=== PATIENT | male | born 1995 | race Caucasian/White ===

== ENCOUNTER 2017-01-02 13:37 | Day surgery (SDC) | payer OTHER, MEDICAID ==
[~2017-01-02 13:37] MED LIST: GLYCOPYRROLATE INJ 0.4 MG/2 ML VIAL ONE; KETOROLAC TROMETHAMINE 60 MG/2 ML SDV ONE; LIDOCAINE 2% INJ-PF (20 MG/ML) 10 ML AMPUL ONE; METOCLOPRAMIDE HCL INJ/PF 10 MG/2 ML SDV ONE; NEOSTIGMINE METHYLSULFATE 10 MG/10 ML VIAL ONE; ONDANSETRON HCL INJ/PF 4 MG/2 ML SDV ONE; ROCURONIUM BROMIDE INJ 50 MG/5 ML VIAL IV ONE; SUCCINYLCHOLINE CHLORIDE INJ 200 MG/10 ML VIAL ONE
--- NOTE | 2017-01-02 13:51 | ER Document Report ---
ED Medical Screen (RME) - General Stated Complaint: ABDOMINAL PAIN Notes: 21 yo male c/o right lower abdominal pain, cramping, vomiting x 2 day. no fever. last ate 0200 hx/o IDDM, on pump Humulog - Related Data Allergies/Adverse Reactions: No Known Allergies Allergy (Verified 01/02/17 13:49) Past Medical History Endocrine Medical History: Reports: Hx Diabetes Mellitus Type 1 - Immunizations Immunizations up to date: Yes Hx Diphtheria, Pertussis, Tetanus Vaccination: Yes Physical Exam - Vital signs Vitals: Temp Pulse Resp BP Pulse Ox 98.5 F 104 H 18 134/67 H 98 01/02/17 13:44 01/02/17 13:44 01/02/17 13:44 01/02/17 13:44 01/02/17 13:44 Course - Vital Signs Vital signs: Temp Pulse Resp BP Pulse Ox 98.5 F 104 H 18 134/67 H 98 01/02/17 13:44 01/02/17 13:44 01/02/17 13:44 01/02/17 13:44 01/02/17 13:44
[2017-01-02 14:26] LABS: APPEARANCE,URINE CLEAR; BILIRUBIN,URINE NEGATIVE (NEGATIVE); GLUCOSE, URINE >=500 mg/dL (NEGATIVE); KETONES,URINE 80 mg/dL (NEGATIVE); LEUKOCYTE ESTERASE,URINE NEGATIVE (NEGATIVE); NITRITE,URINE NEGATIVE (NEGATIVE); PROTEIN,URINE NEGATIVE (NEGATIVE); UROBILINOGEN,URINE NEGATIVE mg/dL (<2.0)
[2017-01-02 14:31] LABS: ABSOLUTE EOSINOPHILS # (AUTO) 0.1 10^3/uL (0.0-0.6); ABSOLUTE LYMPHOCYTES (AUTO) 0.7 10^3/uL (0.5-4.7); ABSOLUTE MONOCYTES (AUTO) 0.5 10^3/uL (0.1-1.4); ABSOLUTE NEUT (AUTO) 11.3 10^3/uL (1.7-8.2); EOSINOPHILS % (AUTO) 0.6 % (0-6); HEMATOCRIT 43.3 % (37.9-51.0); HEMOGLOBIN 14.8 g/dL (13.5-17.0); HGB HCT DIFFERENCE 1.1; LYMPHOCYTES % (AUTO) 5.5 % (13-45); MEAN CORPUSCULAR HGB CONC 34.2 g/dL (32.0-36.0); MEAN CORPUSCULAR VOLUME 85 fl (80-97); MONOCYTES % (AUTO) 3.9 % (3-13); RED BLOOD COUNT 5.09 10^6/uL (4.35-5.55); RED CELL DISTRIBUTION WIDTH 13.2 % (11.5-14.0); WHITE BLOOD COUNT 12.6 10^3/uL (4.0-10.5)
[2017-01-02] MEDS ORDERED: ONDANSETRON HCL INJ/PF 4 MG/2 ML SDV IV ONE (14:34)
[2017-01-02] MEDS ORDERED: MORPHINE SULFATE 10 MG/ML INJ IV ONE (14:34)
[2017-01-02 14:37] LABS: ALANINE AMINOTRANSFERASE 25 U/L (21-72); ALBUMIN 5.2 g/dL (3.5-5.0); ALKALINE PHOSPHATASE 108 U/L (38-126); ANION GAP 18 (5-19); ASPARTATE AMINO TRANSFERASE 16 U/L (17-59); BILIRUBIN,DIRECT 0.3 mg/dL (0.0-0.4); BILIRUBIN,TOTAL 1.3 mg/dL (0.2-1.3); BLOOD UREA NITROGEN 17 mg/dL (7-20); CALCIUM 10.4 mg/dL (8.4-10.2); CARBON DIOXIDE 24 mmol/L (22-30); CHLORIDE 100 mmol/L (98-107); CREATININE RESULT 0.87 mg/dL (0.52-1.25); GLUCOSE 262 mg/dL (75-110); POTASSIUM 5.1 mmol/L (3.6-5.0); SODIUM 142.1 mmol/L (137-145); TOTAL PROTEIN 8.3 g/dL (6.3-8.2)
[2017-01-02] MEDS ORDERED: PIPERACILLIN/TAZOBACTAM 3.375 GM VIAL IV ONE (14:37)
--- NOTE | 2017-01-02 14:39 | ER Document Report ---
ED GI/ - General Mode of Arrival: Ambulatory Information source: Patient, Parent TRAVEL OUTSIDE OF THE [place] IN LAST 30 DAYS: No - HPI Patient complains to provider of: Abdominal pain Associated symptoms: Other - See above <ALEXI GODINEZ - Last Filed: 01/02/17 15:20> <MAGDAANOOP - Last Filed: 01/02/17 19:48> - General Chief Complaint: Abdominal Pain Stated Complaint: ABDOMINAL PAIN Notes: Patient is a 21 year old male, with a past medical history including IDDM, who presents to the emergency department complaining of abdominal pain onset at 0600 this morning. Patient reports he went to bed with a stomach ache last night and thought it would go away. Patient woke up with pain across his lower abdomen, mostly in his RLQ, and nauseated. Patient vomited at 0630 and again at 1115. Patient reports he feels dehydrated after vomiting. Parents deny fever but state they do not have a thermometer at home. PCP: Dr. David Vargas, [facility] (ALEXI GODINEZ) - Related Data Allergies/Adverse Reactions: No Known Allergies Allergy (Verified 01/02/17 13:49) Past Medical History - General Information source: Patient - Social History Smoking Status: Never Smoker Chew tobacco use (# tins/day): No Frequency of alcohol use: None Drug Abuse: None Family History: Reviewed & Not Pertinent Patient has suicidal ideation: No Patient has homicidal ideation: No Endocrine Medical History: Reports: Hx Diabetes Mellitus Type 1 - Immunizations Immunizations up to date: Yes Hx Diphtheria, Pertussis, Tetanus Vaccination: Yes <ALEXI GODINEZ - Last Filed: 01/02/17 15:20> Review of Systems - Review of Systems Constitutional: denies: Fever EENT: No symptoms reported Cardiovascular: No symptoms reported Respiratory: No symptoms reported Gastrointestinal: See HPI, Abdominal pain, Nausea, Vomiting Genitourinary: No symptoms reported Male Genitourinary: No symptoms reported Musculoskeletal: No symptoms reported Skin: No symptoms reported Hematologic/Lymphatic: No symptoms reported Neurological/Psychological: No symptoms reported -: Yes All other systems reviewed and negative <ALEXI GODINEZ - Last Filed: 01/02/17 15:20> Physical Exam - Vital signs Interpretation: Normal - General General appearance: Appears well, Alert - HEENT Head: Normocephalic, Atraumatic Mucous membranes: Dry - Respiratory Respiratory status: No respiratory distress Chest status: Nontender Breath sounds: Normal Chest palpation: Normal - Cardiovascular Rhythm: Regular Heart sounds: Normal auscultation Murmur: No - Abdominal Inspection: Other - Insulin pump connected to RLQ Distension: No distension Bowel sounds: Hypoactive Tenderness: Tender - Tenderness to palpation of RLQ, when LLQ is palpated patient reports pain in RLQ., Guarding Organomegaly: No organomegaly - Extremities General upper extremity: Normal inspection General lower extremity: Normal inspection - Neurological Neuro grossly intact: Yes Cognition: Normal Orientation: AAOx4 [place] Coma Scale Eye Opening: Spontaneous [place] Coma Scale Verbal: Oriented [place] Coma Scale Motor: Obeys Commands Luis Manuel Coma Scale Total: 15 Speech: Normal - Psychological Associated symptoms: Normal affect, Normal mood - Skin Skin Temperature: Warm Skin Moisture: Dry Skin Color: Normal <ALEXI GODINEZ - Last Filed: 01/02/17 15:20> Course - Laboratory Result Diagrams: 01/02/17 13:55 01/02/17 13:55 <ALEXI GODINEZ - Last Filed: 01/02/17 15:20> - Laboratory Result Diagrams: 01/02/17 13:55 01/02/17 13:55 - Diagnostic Test Radiology reviewed: Image reviewed, Reports reviewed - CT of abdomen and pelvis with IV contrast shows a small appendicolith, no inflammation, no other abnormalities. - Consults Dr. Lowe Time consulted: 15:00 Consulted provider: will come to ER <ANOOP MAN - Last Filed: 01/02/17 19:48> - Vital Signs Vital signs: Temp Pulse Resp BP Pulse Ox 98.5 F 104 H 20 125/62 100 01/02/17 13:44 01/02/17 13:44 01/02/17 18:59 01/02/17 18:59 01/02/17 18:59 - Laboratory Laboratory results interpreted by me: 01/02/17 01/02/17 01/02/17 13:45 13:55 13:55 WBC 12.6 H Seg Neutrophils % 90.0 H Lymphocytes % 5.5 L Absolute Neutrophils 11.3 H Potassium 5.1 H Glucose 262 H POC Glucose 235 H Calcium 10.4 H AST 16 L Total Protein 8.3 H Albumin 5.2 H Urine Glucose (UA) Urine Ketones 01/02/17 13:55 WBC Seg Neutrophils % Lymphocytes % Absolute Neutrophils Potassium Glucose POC Glucose Calcium AST Total Protein Albumin Urine Glucose (UA) >=500 H Urine Ketones 80 H Discharge <ALEXI GODINEZ - Last Filed: 01/02/17 15:20> - Discharge Admitting Provider: Surgicalist Unit Admitted: OR <ANOOP MAN - Last Filed: 01/02/17 19:48> - Discharge Clinical Impression: Right lower quadrant abdominal pain, Insulin dependent diabetes mellitus, Ketosis due to diabetes, Appendicolith Nausea & vomiting Qualifiers: Vomiting type: unspecified Vomiting Intractability: non-intractable Qualified Code(s): R11.2 - Nausea with vomiting, unspecified Condition: Stable Disposition: ADMITTED INPATIENT Referrals: DAVID VARGAS MD [Primary Care Provider] - Follow up as needed Scribe Attestation: 01/02/17 15:04 I personally performed the services described in the documentation, reviewed and edited the documentation which was dictated to the scribe in my presence, and it accurately records my words and actions. (ANOOP MAN) Scribe Documentation - Scribe Written by Alessandro:: alessandro Torres, 01/02/17, [id number] acting as scribe for :: Magda <ALEXI GODINEZ - Last Filed: 01/02/17 15:20>
[2017-01-02] MEDS: NORMAL SALINE 1000 ML 1,000 ML IV PRN ×2 (14:58→15:05)
[2017-01-02] MEDS ORDERED: NORMAL SALINE 1000 ML 1,000 ML IV ONE (17:42)
[2017-01-02] MEDS ORDERED: MORPHINE SULFATE 10 MG/ML INJ IV PRN ×4 (18:58→22:30)
[2017-01-02] MEDS ORDERED: DEXTROSE 5%-LACTATED RINGERS 1,000 ML IV PRN (18:58)
[2017-01-02] MEDS ORDERED: OXYCODONE-ACETAMINOPHEN 5-325 MG TABLET PO PRN ×2 (19:03→19:21)
[2017-01-02] MEDS ORDERED: PIPERACILLIN/TAZOBACTAM 4.5 GM VIAL IV ONE (19:05)
--- NOTE | 2017-01-02 19:17 | Brief Operative Note ---
BRIEF OPERATIVE REPORT DATE OF SURGERY: 01/02/17 TIME OF SURGERY: 18:00 PREOPERATIVE DIAGNOSIS: Acute Appendicitis POSTOPERATIVE DIAGNOSIS: Purulent Acute Appendicitis SURGEON: LYDIA VALDES FINDINGS: Purulent Appendicitis COMPLICATIONS: None ESTIMATED BLOOD LOSS: 10cc TISSUE REMOVED OR ALTERED: Apppendix TECHNICAL PROCEDURE: Laparoscopic Appendectomy
[2017-01-02] MEDS ORDERED: FENTANYL CITRATE INJ/PF 250 MCG/5 ML AMPULE ONE (20:18)
[2017-01-02] MEDS ORDERED: EPHEDRINE SULFATE INJ 50 MG/1 ML AMPULE ONE (20:19)
[2017-01-02] MEDS ORDERED: DEXMEDETOMIDINE INJ 80 MCG/20 ML VIAL IV ONE (20:19)
[2017-01-02] MEDS ORDERED: PROPOFOL INJ 200 MG/20 ML VIAL IV ONE (20:19)
[2017-01-02] MEDS ORDERED: ACETAMINOPHEN 100 ML IV ONE (20:19)
[2017-01-02] MEDS ORDERED: MIDAZOLAM 2 MG/2 ML INJ ONE (20:19)
--- NOTE | 2017-01-02 20:23 | HISTORY AND PHYSICAL E ---
History and Physical NAME: CHRIS LUQUE : 1995 AGE: 21Y ADMITTED: 01/02/2017 ROOM: ED21 REASON FOR ADMISSION: Acute appendicitis. HISTORY OF PRESENT ILLNESS: This 21-year-old man was in his usual state of health until approximately midnight last night when he developed right lower quadrant pain. This was accompanied by nausea without vomiting, without fever or chills. The patient presented to the emergency room and on examination was found to have right lower quadrant tenderness. Bowel sounds were present, however. The patient's white count was 12.6 and labs, otherwise, were within normal limits. I was asked to see the patient, but at that time my findings were equivocal and I recommended that a CT scan be performed. CT scan was done and revealed a small appendicolith at image 59 and 60, but there was no free fluid or peritoneal masses. There were no inflammatory changes or masses. However, the patient continues to have right lower quadrant pain and, therefore, surgical referral was made. PAST MEDICAL HISTORY: The patient has history of diabetes mellitus and has an insulin pump in his abdomen. The patient has no history of hypertension; cardiac, renal, pulmonary, or liver disease; or bleeding tendencies. No history of anesthesia problems. ALLERGIES: The patient has no known allergies. PAST SURGICAL HISTORY: The patient has no previous surgery. INJURIES: None. REVIEW OF SYSTEMS: Constitutional; the patient has no actual weakness. The patient has no symptoms referable to the ENT, respiratory, or cardiovascular systems. Gastrointestinal systems; as in the history of present illness. The patient denies any genitourinary, musculoskeletal, integumentary, lymphatic, endocrine, or psychiatric symptoms. The patient does have insulin dependent diabetes and is on an insulin pump. PHYSICAL EXAMINATION: GENERAL: Reveals a 21-year-old male who is normally nourished, normally developed with no acute distress. VITAL SIGNS: Noted; temperature 98.5, pulse 104, respirations 18, blood pressure 134/67, pulse ox 98. HEENT: There is no conjunctival pallor or scleral icterus. Mucous membranes are moist and pink. NECK: Supple without nodes, masses, thyroid, JVD, or bruits. Trachea is midline. CHEST: Shows good excursion. Lungs are clear anteriorly with good entry bilaterally. CARDIOVASCULAR: S1 and S2 are audible without murmurs or gallops. ABDOMEN: Soft, flat with mild to moderate right lower quadrant tenderness with minimal guarding, there is no rebound. Bowel sounds are present. There are no hernias or bruits. There is no organomegaly or masses. EXTREMITIES: Show full range of motion. IMPRESSION: Acute appendicitis. Given the presence of an appendicolith and the patient's consistent and persistent right lower quadrant tenderness. DICTATING PHYSICIAN: LYDIA VALDES M.D. [id number] PHY#: [id number] ID: [id number] JOB#: [id number] ACCT: [id number] cc: >
[2017-01-02] MEDS ORDERED: BUPIVACAINE HCL 0.5 % INJ/PF 30 ML SDV ONE (21:02)
[2017-01-02] MEDS ORDERED: BUPIVACAINE HCL 0.5 % INJ/PF 30 ML SDV INJ ONE (21:16)
[2017-01-02] MEDS ORDERED: ONDANSETRON HCL INJ/PF 4 MG/2 ML SDV IV PRN (21:23)
[2017-01-02] MEDS ORDERED: DIPHENHYDRAMINE HCL 50 MG/ML VIAL IV PRN (21:23)
[2017-01-02] MEDS ORDERED: PROMETHAZINE HCL INJ 25 MG/1 ML VIAL IV PRN ×2 (21:23)
[2017-01-02] MEDS ORDERED: MEPERIDINE HCL/PF INJ 25 MG/1 ML DISP.SYRIN IV PRN (21:23)
[2017-01-02] MEDS ORDERED: FENTANYL CITRATE INJ/PF 100 MCG/2 ML AMPUL IV PRN ×3 (21:23)
[2017-01-02] MEDS ORDERED: NORMAL SALINE 1000 ML 1,000 ML IV PRN (22:01)
--- NOTE | 2017-01-02 22:14 | Brief Operative Note ---
BRIEF OPERATIVE REPORT DATE OF SURGERY: 01/02/17 TIME OF SURGERY: 21:00 PREOPERATIVE DIAGNOSIS: Acute Appendicitis POSTOPERATIVE DIAGNOSIS: Same SURGEON: LYDIA VALDES FINDINGS: Appendicolith COMPLICATIONS: None ESTIMATED BLOOD LOSS: 3cc TISSUE REMOVED OR ALTERED: Appendix TECHNICAL PROCEDURE: Laparoscopic Appendectomy
[2017-01-02] MEDS: PIPERACILLIN SODIUM/TAZOBACTAM 4.5 GM in NORMAL SALINE 100 ML IV SCH (23:02)
--- NOTE | 2017-01-02 23:08 | OPERATIVE REPORT E ---
Operative Report NAME: CHRIS LUQUE : 1995 AGE: 21Y DATE OF SURGERY: 01/02/2017 ROOM: 530 PREOPERATIVE DIAGNOSIS: Appendicitis. POSTOPERATIVE DIAGNOSIS: Appendicitis with appendicolith. OPERATION: Laparoscopic appendectomy. SURGEON: LYDIA VALDES M.D. ANESTHESIA: General. REPLACEMENT: Crystalloid. DRAINS: None. COMPLICATIONS: None. CONDITION: Stable. FINDINGS: The patient had early appendicitis with appendicolith in the appendix. INDICATION FOR THE PROCEDURE: The patient presented to the emergency room with a 12-hour history of right lower quadrant pain, some nausea and vomiting. The patient underwent a CT scan which showed an appendicolith without evidence of inflammatory changes; however, because of his right lower quadrant pain the patient was brought to the operating room for laparoscopic appendectomy. PROCEDURE: The patient was brought to the operating suite and placed in a supine position on the operating table. Monitoring devices were attached. An IV sedation was given followed by the induction of general endotracheal anesthesia. The patient's abdomen was prepped and draped in the usual sterile manner and a timeout was achieved. We then made an incision just below the umbilicus after injecting Marcaine solution. The incision was carried through the skin and subcutaneous tissue down to the linea alba. Two 0-vicryl stay sutures were placed in the linea alba, and then an incision was made between the 2 stay sutures. We then grasped the peritoneum and made an incision in the peritoneum and entered the abdominal cavity. There was no evidence of any viscera adherent to the anterior abdominal wall. We then inserted our Franks trocar and secured it with 2-0 Vicryl stay sutures. We inserted our laparoscopic camera and light source and surveyed the abdominal cavity and found no evidence of any bleeding or injuries. Under direct vision we placed our remaining 2 trocars, 5 mm, at the suprapubic region and another 5 mm at the left lower quadrant. The appendix was easily visualized and it was lifted. An opening was made in the mesoappendix. We inserted the endoscopic HARSHAD and divided the mesoappendix and then reloaded the HARSHAD and then divided the appendix from the cecal base. The appendix was placed in the EndoBag and removed from the abdominal cavity. We noticed some bleeding from the staple line, and hemoclips were placed on the staple line in order to arrest the bleeding. Once adequate hemostasis was assured, we then irrigated again with normal saline and once being satisfied with hemostasis, we removed all trocars under direct vision after sucking out the saline, and the procedure was terminated. We then decompressed the abdomen and closed our infraumbilical incision using 0-Vicryl continuous suture. Once we closed the fascial defect, we then closed all skin incisions using a skin stapler. The patient tolerated the procedure well. Sponge and instruments were correct. The patient was discharged to the PACU in stable condition. DICTATING PHYSICIAN: LYDIA VALDES M.D. [id number] PHY#: [id number] ID: [id number] JOB#: [id number] ACCT: [id number] cc:LYDIA VALDES M.D. >
[2017-01-03] MEDS ORDERED: PIPERACILLIN/TAZOBACTAM 4.5 GM VIAL IV ONE (00:10)
[2017-01-03] MEDS: PIPERACILLIN SODIUM/TAZOBACTAM 4.5 GM in NORMAL SALINE 100 ML IV SCH ×2 (03:32→08:49)
[2017-01-03] MEDS ORDERED: DEXTROSE 50%-WATER 25 GM/50 ML DISP.SYRIN IV PRN ×2 (06:25)
[2017-01-03] MEDS ORDERED: GLUCAGON,HUMAN RECOMB 1 MG INJ IM PRN (06:25)
[2017-01-03] MEDS ORDERED: INSULIN LISPRO 100 UNIT/ML 3 ML VIAL SUBCUT PRN (06:25)
[2017-01-03] MEDS ORDERED: DEXTROSE 40% GEL 15 GM TUBE PO PRN ×2 (06:25)
[2017-01-03] MEDS ORDERED: PHARMACY COMMUNICATION ORDER MC NR (07:30)
--- NOTE | 2017-01-03 07:52 | PDOC CONSULTATION ---
Consultation Consult Date: 01/03/17 Attending physician:: LYDIA VALDES Consult reason:: DIABETIC MANAGEMENT History of Present Illness Admission Date/PCP: 01/02/17 19:58 AMAIRANI VARGAS MD Patient complains of: abd pain History of Present Illness: CHRIS LUQUE is a 21 year old male with underlying insulin- dependent diabetes mellitus, managed by insulin pump for several years, status post laparoscopic appendectomy for appendicitis with appendicolith. Consult placed for diabetic management. Surgeon's history and physical exam has been reviewed. Per nursing staff, he has had basically an unremarkable postoperative course. Mild discomfort. Has Voided. Patient has been discussed with floor nursing staff . Laboratory results are listed in [facility] and are reviewed. X-ray summary results are listed below, with full report(s) reviewed. . Social history/personal habits: Single. No children. Unemployed. No use of alcohol tobacco or illicit drugs. Allergies/adverse reactions NKDA. Home medications are reviewed by discussion with patient and consist only of insulin for his insulin pump, along with when necessary Zofran. REVIEW OF SYSTEMS: Constitutional: No fever or chills. Eyes: Wears glasses. ENT: No swallowing problems or complaints. Partial hearing loss., Left ear Pulmonary: No current complaints. Cardiovascular: No current complaints, including chest pain. Gastrointestinal: Nausea, without vomiting. Skin: No current complaints, including rashes. Hematologic: No unusual easy bruising or bleeding. Neurologic: No current complaints, including numbness or tingling. Musculoskeletal: No current complaints, including painful joints. Psychiatric: No current complaints, including anxiety or depression. Endocrine: No current complaints, including polyuria. Genitourinary: No current complaints, including dysuria. PHYSICAL EXAMINATION: 5 feet 9 inches tall. 77.7 kg. BMI 25.3 kg/m.Temperature 98.7. Pulse 97 regular. Blood pressure 119/48. Respirations are 14 and unlabored. 99% saturation on room air. Well-nourished well-developed young male appearing approximate stated age. Initially asleep, but awakens easily. Pleasant alert and cooperative. No obvious distress other than perhaps mildly anxious. Floor nurse Apoorva Sosa is present. Skin is warm and dry. No grossly obvious evidence of rash in areas of skin examined. No subcutaneous nodules palpated. ENT: Hearing grossly normal to normal conversation. Tongue midline on protrusion pink and slightly tacky. Eyes: No scleral icterus. Pupils equal and reactive to light at 4 mm. [place] conjunctivae. Neck is supple and nontender to gentle active range of motion and palpation. Midline trachea. No palpable thyroid nodule mass enlargement or tenderness. Lymphatic: No palpable cervical or clavicular nodes. Neck and lymphatic exams limited by patient body habitus. Psychiatric: Reasonable insight into acute and chronic medical issues. Oriented to time location and why here. Lungs: Auscultation reveals clear and equal breath sounds bilaterally. No use of accessory respiratory muscles. Cardiovascular: Heart regular rate and rhythm, without gallop murmur or rub. No carotid or abdominal aortic bruits. No ankle or pedal edema. Faintly palpable dorsalis pedis pulses. Abdomen: soft, slightly, distended with occasional bowel sounds. Surgical dressings are clean dry and intact, and are left in place. Insulin pump with overlying dressing is present, right lower quadrant abdominal wall. Extremities: Feet are warm and dry. No calf tenderness to compression. No grossly obvious visual evidence of calf swelling. Gentle manipulation of lower extremities fails to reveal any obvious evidence of injury or instability to knees hips or ankles. Neurologic: Moves upper extremities grossly normally. Patellar reflexes absent. Absent Babinski. Light touch is intact at feet. Dorsiflexion and plantarflexion of feet 5 / 5 and symmetric. Past Medical History Cardiac Medical History: Denies: Congestive Heart Failure, DVT, Myocardial Infarction, Hyperlipidema, Hypertension, Pulmonary Embolism Pulmonary Medical History: Denies: Asthma, Chronic Obstructive Pulmonary Disease (COPD) EENT Medical History: Reports: Eyes - Glasses, Ears - Partial hearing loss, left ear Denies: Throat Neurological Medical History: Reports: Seizures - Seizures 2 - 3 years of age. None since then. Not on antiepileptic. Denies: Hemorrhagic CVA, Ischemic CVA Endocrine Medical History: Reports: Diabetes Mellitus Type 1 Denies: Diabetes Mellitus Type 2, Hyperthyroidism, Hypothyroidism Renal/ Medical History: Reports: None GI Medical History: Denies: Cirrhosis, Gastroesophageal Reflux Disease, Hepatitis, Peptic Ulcer Disease Musculoskeltal Medical History: Denies: Arthritis Skin Medical History: Reports: None Psychiatric Medical History: Denies: Alcohol Dependency, Depression, General Anxiety Disorder, Substance Abuse, Tobacco Dependency Hematology: Reports: None Infectious Medical History: Denies: Hepatitis B, Hepatitis C Past Surgical History Past Surgical History: Reports: Appendectomy Social History Information Source: Patient, Emergency Med Personnel, [facility] Records Smoking Status: Never Smoker Frequency of Alcohol Use: None Hx Recreational Drug Use: No Drugs: None Hx Prescription Drug Abuse: No - Advance Directive Resuscitation Status: Full Code Surrogate healthcare decision maker:: Parents Family History Family History: Reviewed & Not Pertinent Parental Family History Reviewed: Yes Children Family History Reviewed: NA Sibling(s) Family History Reviewed.: Yes Medication/Allergy Home Medications: Insulin Aspart [Novolog Insulin 100 Unit/1 ml 10 ml] 0 unit SUBCUT .SLD SCALE Ondansetron HCl [Zofran 4 mg Tablet] 1 tab PO ASDIR PRN 01/02/17 Allergies/Adverse Reactions: No Known Allergies Allergy (Verified 01/02/17 13:49) Physical Exam Vital Signs: Temp Pulse Resp BP Pulse Ox 98.7 F 97 14 119/48 L 99 01/03/17 03:45 01/03/17 03:45 01/03/17 03:45 01/03/17 03:45 01/03/17 03:45 Intake & Output 01/02/17 01/03/17 01/04/17 00:59 00:59 00:59 Intake Total 1500 894 Output Total 1201 Balance 299 894 Results Impressions: Abdomen/Pelvis CT 01/02/17 15:47 IMPRESSION: No acute findings in the abdomen or pelvis. Assessment & Plan - Diagnosis (1) History of laparoscopic appendectomy Is this a current diagnosis for this admission?: Yes (2) Hyperkalemia Is this a current diagnosis for this admission?: YesPlan: Follow-up chemistry. (3) DVT prophylaxis Is this a current diagnosis for this admission?: YesPlan: SCDs. Medical prophylaxis per surgery. (4) Insulin dependent diabetes mellitus Is this a current diagnosis for this admission?: YesPlan: Diabetic cardiac diet. Accu-Cheks. Patient to manage blood sugars with insulin pump, as he has for some time now. Thank you for asking us see this pleasant patient. We'll follow him closely.
[2017-01-03 07:58] LABS: ANION GAP 12 (5-19); BLOOD UREA NITROGEN 10 mg/dL (7-20); CALCIUM 8.6 mg/dL (8.4-10.2); CARBON DIOXIDE 23 mmol/L (22-30); CHLORIDE 106 mmol/L (98-107); CREATININE RESULT 0.84 mg/dL (0.52-1.25); GLUCOSE 99 mg/dL (75-110); SODIUM 141.2 mmol/L (137-145)
--- NOTE | 2017-01-03 08:08 | PDOC PROGRESS REPORT ---
Subjective Progress Note for:: 01/03/17 Subjective:: Feels well. Abdominal pain improved after the operation. Hungry. Physical Exam Vital Signs: Temp Pulse Resp BP Pulse Ox 98.7 F 97 14 119/48 L 99 01/03/17 03:45 01/03/17 03:45 01/03/17 03:45 01/03/17 03:45 01/03/17 03:45 Intake & Output 01/02/17 01/03/17 01/04/17 06:59 06:59 06:59 Intake Total 2394 Output Total 1201 Balance 1193 General appearance: PRESENT: no acute distress, cooperative Respiratory exam: PRESENT: clear to auscultation saravanan Cardiovascular exam: PRESENT: RRR GI/Abdominal exam: PRESENT: other - Soft, nondistended, minimal abdominal tenderness. Wounds clean dry and intact. Extremities exam: PRESENT: other - No swelling and no tenderness. Results Impressions: Abdomen/Pelvis CT 01/02/17 15:47 IMPRESSION: No acute findings in the abdomen or pelvis. Assessment & Plan - Diagnosis (1) Appendicitis Qualifiers: Appendicitis type: acute appendicitis Is this a current diagnosis for this admission?: YesPlan: Status post laparoscopic appendectomy. Patient doing well. Will allow the patient to eat and discharge patient home if tolerated.
[2017-01-03 08:15] LABS: POTASSIUM 3.5 mmol/L (3.6-5.0)
[2017-01-03 08:46] VITALS: BP 123/60
--- NOTE | 2017-01-03 09:30 | PDOC PROGRESS REPORT ---
Subjective Progress Note for:: 01/03/17 Subjective:: Patient is awake, alert, and eating breakfast. Patient has no complaints and is tolerating his diet. Blood glucose is well controlled and pump has been resumed. No nausea, vomiting, diarrhea, shortness of breath, dizziness, and chest pain. Patient is eager for discharge. Physical Exam Vital Signs: Temp Pulse Resp BP Pulse Ox 99.1 F 76 14 123/60 100 01/03/17 08:36 01/03/17 08:36 01/03/17 08:36 01/03/17 08:36 01/03/17 08:36 Intake & Output 01/01/17 01/02/17 01/03/17 23:59 23:59 23:59 Intake Total 1500 894 Output Total 1201 Balance 299 894 General appearance: PRESENT: no acute distress, cooperative, well-developed, well-nourished Head exam: PRESENT: atraumatic, normocephalic Eye exam: PRESENT: conjunctiva pink, EOMI, PERRLA. ABSENT: scleral icterus Ear exam: PRESENT: normal external ear exam Mouth exam: PRESENT: moist, tongue midline Neck exam: ABSENT: carotid bruit, JVD, lymphadenopathy, thyromegaly Respiratory exam: PRESENT: clear to auscultation saravanan. ABSENT: rales, rhonchi, wheezes Cardiovascular exam: PRESENT: RRR. ABSENT: diastolic murmur, rubs, systolic murmur Pulses: PRESENT: normal dorsalis pedis pul Vascular exam: PRESENT: normal capillary refill GI/Abdominal exam: PRESENT: normal bowel sounds, soft, tenderness - post-op. ABSENT: distended, guarding, mass, organolmegaly, rebound Rectal exam: PRESENT: deferred Extremities exam: PRESENT: full ROM. ABSENT: calf tenderness, clubbing, pedal edema Neurological exam: PRESENT: alert, awake, oriented to person, oriented to place , oriented to time, oriented to situation, CN II-XII grossly intact. ABSENT: motor sensory deficit Psychiatric exam: PRESENT: appropriate affect, normal mood. ABSENT: homicidal ideation, suicidal ideation Skin exam: PRESENT: dry, intact, warm. ABSENT: cyanosis, rash Results Laboratory Results: 01/03/17 07:26 01/03/17 07:26 Sodium 141.2 Potassium 3.5 L D Chloride 106 Carbon Dioxide 23 Anion Gap 12 BUN 10 Creatinine 0.84 Est GFR ( Amer) > 60 Est GFR (Non-Af Amer) > 60 Glucose 99 Calcium 8.6 Impressions: Abdomen/Pelvis CT 01/02/17 15:47 IMPRESSION: No acute findings in the abdomen or pelvis. Assessment & Plan - Diagnosis (1) Appendicitis Qualifiers: Appendicitis type: acute appendicitis Is this a current diagnosis for this admission?: YesPlan: Post-op management per sx (2) Appendicolith Is this a current diagnosis for this admission?: No (3) DVT prophylaxis Is this a current diagnosis for this admission?: Yes (4) History of laparoscopic appendectomy Is this a current diagnosis for this admission?: Yes (5) Hyperkalemia Is this a current diagnosis for this admission?: YesPlan: Resolved. now hypokalemic. Will give a dose of potassium. (6) Insulin dependent diabetes mellitus Is this a current diagnosis for this admission?: YesPlan: Resume basal now taking diet. Coverage as per carb count. - Time Time Spent with patient: 35 or more minutes Medications reviewed and adjusted accordingly: Yes Anticipated discharge: Home Within: Other Disposition: as per surgery
--- NOTE | 2017-01-03 09:50 | DISCHARGE SUMMARY E ---
Discharge Summary NAME: CHRIS LUQUE : 1995 AGE: 21Y ADMITTED: 01/02/2017 DISCHARGED: 01/03/2017 DISCHARGE DIAGNOSIS: Appendicitis. PROCEDURE PERFORMED DURING HOSPITALIZATION: Laparoscopic appendectomy performed by Dr. Lowe on 01/02/2017. HOSPITAL COURSE: The patient underwent the above mentioned surgery. He did well postoperatively. He was feeling much better at the time of discharge. Patient has now been discharged to home in good condition. DISCHARGE INSTRUCTIONS: He will follow up with [facility] next week. He is encouraged to stay active at home. He may follow a diabetic diet at home. Additional medication to his insulin pump is Percocet one p.o. q. 4 hours p.r.n. pain. DICTATING PHYSICIAN: HELEN HANLEY M.D. [id number] PHY#: [id number] ID: [id number] JOB#: [id number] ACCT: [id number] cc:Robyn CASTRO M.D. >
[2017-01-03] MEDS ORDERED: POTASSIUM CHLORIDE 10 MEQ TABLET.SA PO ONE (10:00)
== END 2017-01-03 10:09 | disposition home or self-care (01) ==
LOC: ER 13:37 → EH 19:58 → UNDOADMIN 19:58 → ER 22:00 → OROUT 22:00 → EH 22:00 → UNDOADMOB 22:00 → INTOOBSV 22:00 → EH 22:44 → 5 22:44 → EH 22:44 → UNDODISIN 01-03 10:09 → OROUT 01-03 10:09 → UNDODISOB 01-03 10:09 → OROUT 01-03 18:41 → 5 01-03 22:00
PROVIDERS: ATTEND Surgery
PROC: 0DTJ4ZZ Resection of Appendix, Percutaneous Endoscopic Approach (ICD-10-PCS; principal; 2017-01-02 21:30)
DX: K35.80 Unspecified acute appendicitis (principal); K38.1 Appendicular concretions; E11.9 Type 2 diabetes mellitus without complications; E87.5 Hyperkalemia; Z96.41 Presence of insulin pump (external) (internal); Z79.4 Long term (current) use of insulin
CPT/HCPCS: 44970; 99285; 96361; 96375; 96365; 36415 ×2; 82962 ×2; 85025; 80048; 80053; 81001; 88304 ×2; 74177; J2250; J3490 ×3; J1885; J3010; J2765; J2270; J0330; J2405; J7030; J2704; J2543 ×2; J0131; 840

== ENCOUNTER 2020-03-22 20:58 | Emergency (ER) | payer MEDICAID, OTHER ==
[2020-03-22] MEDS ORDERED: DIPH/PERTUSS(ACELL)/TETANUS VAC/PF 0.5 ML SYR (>=10YO) IM ONE (22:35)
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
[2020-03-23] MEDS ORDERED: TETRACAINE HCL 0.5% OPH SOLN 4 ML OS ONE (02:31)
[2020-03-23] MEDS ORDERED: LIDOCAINE 4%/TETRACAINE 0.5%/EPI 0.18% 5 ML TOPICAL SOLN TOP ONE (02:31)
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
[2020-03-23] MEDS ORDERED: DIPH/PERTUSS(ACELL)/TETANUS VAC/PF 0.5 ML SYR (>=10YO) IM ONE (03:57)
[2020-03-23 04:07] VITALS: BP 127/80
== END 2020-03-23 04:07 | disposition home or self-care (01) ==
LOC: ER 20:58
PROC: 08QPXZZ Repair Left Upper Eyelid, External Approach (ICD-10-PCS; principal; 2020-03-22)
DX: Z23 Encounter for immunization (principal); S05.12XA Contusion of eyeball and orbital tissues, left eye, initial encounter; S01.112A Laceration without foreign body of left eyelid and periocular area, initial encounter; Z87.891 Personal history of nicotine dependence; Y04.8XXA Assault by other bodily force, initial encounter; E10.9 Type 1 diabetes mellitus without complications
CPT/HCPCS: 12011; G0168; 70480; 90471; 90715; 99283; J3490

== ENCOUNTER → 2020-09-21 | Day surgery (SDC) | payer OTHER ==
--- NOTE | 2020-09-21 16:47 | RADIOLOGY REPORT (SQ) ---
EXAM DESCRIPTION: FLUORO/NEEDLE PLACEMENT; ARTHRO SHOULDER INJECTION IMAGES COMPLETED DATE/TIME: 09/21/2020 4:23 pm REASON FOR STUDY: (M25.512)PAIN IN LEFT SHOULDER M25.512 PAIN IN LEFT SHOULDER COMPARISON: None. FLUOROSCOPY TIME: 0.1 seconds 1 images saved to PACS. LIMITATIONS: None. PROCEDURE: SITE OF INJECTION: Left posterior shoulder LOCALIZING CONTRAST TYPE AND DOSE: 1 cc omni MEDICATION TYPE AND DOSE: 7 cc lidocaine, 10 cc ProHance Using local anesthesia and sterile technique with fluoroscopic guidance, the needle was advanced into the left posterior shoulder. Iodinated contrast was injected to verify intraarticular placement. Th is was followed by injection of the indicated medications. The needle was removed. There were no im mediate complications. IMPRESSION: DIAGNOSTIC INJECTION OF THE LEFT POSTERIOR JOINT ABOVE. COMMENT: Patient medication list reviewed: Yes- Quality ID# [id number]:Eligible professional attests to doc umenting in the medical record they obtained, updated, or reviewed the patient's current medications. . Quality ID 145: Final reports for procedures using fluoroscopy that document radiation exposure luana payam, or exposure time and number of fluorographic images (if radiation exposure indices are not avail able) TECHNICAL DOCUMENTATION: JOB ID: [id number] 2010 [employer]- All Rights Reserved Reading location - IP/workstation name: [email or web address]
--- NOTE | 2020-09-21 16:47 | RADIOLOGY REPORT (SQ) ---
EXAM DESCRIPTION: FLUORO/NEEDLE PLACEMENT; ARTHRO SHOULDER INJECTION IMAGES COMPLETED DATE/TIME: 09/21/2020 4:23 pm REASON FOR STUDY: (M25.512)PAIN IN LEFT SHOULDER M25.512 PAIN IN LEFT SHOULDER COMPARISON: None. FLUOROSCOPY TIME: 0.1 seconds 1 images saved to PACS. LIMITATIONS: None. PROCEDURE: SITE OF INJECTION: Left posterior shoulder LOCALIZING CONTRAST TYPE AND DOSE: 1 cc omni MEDICATION TYPE AND DOSE: 7 cc lidocaine, 10 cc ProHance Using local anesthesia and sterile technique with fluoroscopic guidance, the needle was advanced into the left posterior shoulder. Iodinated contrast was injected to verify intraarticular placement. Th is was followed by injection of the indicated medications. The needle was removed. There were no im mediate complications. IMPRESSION: DIAGNOSTIC INJECTION OF THE LEFT POSTERIOR JOINT ABOVE. COMMENT: Patient medication list reviewed: Yes- Quality ID# [id number]:Eligible professional attests to doc umenting in the medical record they obtained, updated, or reviewed the patient's current medications. . Quality ID 145: Final reports for procedures using fluoroscopy that document radiation exposure luana payam, or exposure time and number of fluorographic images (if radiation exposure indices are not avail able) TECHNICAL DOCUMENTATION: JOB ID: [id number] 2010 [employer]- All Rights Reserved Reading location - IP/workstation name: [email or web address]
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
== END ==
LOC: RAD 15:15
PROVIDERS: ATTEND Nurse Practitioner Family
DX: M25.512 Pain in left shoulder (principal)
CPT/HCPCS: 73222; 77002; 23350; A9576

== ENCOUNTER 2020-10-01 23:28 | Observation (INO) | payer OTHER ==
--- NOTE | 2020-10-01 23:56 | ER Document Report ---
ED Medical Screen (RME) - General Chief Complaint: Shortness Of Breath Stated Complaint: SOB/ABDOMINAL PAIN/NAUSEA Time Seen by Provider: 10/01/20 23:45 Primary Care Provider: ISABEL JOHNSON NP [Primary Care Provider] - Follow up as needed Mode of Arrival: Ambulatory Information source: Patient Notes: Patient is a 25-year-old male comes emergency room complaining of left upper quadrant pain. Patient states it started approximately 1400 hrs. today and has gotten progressively worse. States that he has increasing shortness of breath and hurts on it deeper inspiration and that increases the pain in the left upper quadrant. Patient admits to having a past medical history pertinent for type 1 diabetes. Patient is not on an insulin pump. He denies smoking he has had no vomiting but has been very nauseated. Patient states his sugars been running around 256. Physical examination shows him to be a thin appearing 25-year-old male no apparent distress on examination. Cardiac: Patient has a regular rate and rhythm at 85 bpm on monitor. Lungs: Bilateral breath sounds increased clear auscultation no rhonchi rales or wheeze heard. Abdomen: Bowel sounds present all 4 quads patient displays some mild left upper quad tenderness in the sitting position to palpation. I have greeted and performed a rapid initial assessment of this patient. A comprehensive ED assessment and evaluation of the patient, analysis of test results and completion of the medical decision making process will be conducted by additional ED providers. Dictation of this chart was performed using voice recognition software; therefore, there may be some unintended grammatical errors. TRAVEL OUTSIDE OF THE [place] IN LAST 30 DAYS: No - Related Data Allergies/Adverse Reactions: No Known Allergies Allergy (Verified 01/02/17 13:49) Home Medications: HUMALOG. LANTUS. ZOFRAN Past Medical History - Social History Chew tobacco use (# tins/day): No Frequency of alcohol use: Occasional Drug Abuse: None - Past Medical History Cardiac Medical History: Denies: Hx Congestive Heart Failure, Hx DVT, Hx Heart Attack, Hx Hypercholesterolemia, Hx Hypertension, Hx Pulmonary Embolism Pulmonary Medical History: Denies: Hx Asthma, Hx COPD Neurological Medical History: Reports: Hx Seizures - Seizures 2 - 3 years of age. None since then. Not on antiepileptic. Endocrine Medical History: Reports: Hx Diabetes Mellitus Type 1. Denies: Hx Diabetes Mellitus Type 2, Hx Hyperthyroidism, Hx Hypothyroidism Renal/ Medical History: Denies: Hx Peritoneal Dialysis GI Medical History: Denies: Hx Cirrhosis, Hx Gastroesophageal Reflux Disease, Hx Hepatitis Musculoskeltal Medical History: Denies Hx Arthritis Psychiatric Medical History: Denies: Hx Depression Infectious Medical History: Denies: Hx Hepatitis Past Surgical History: Reports: Hx Appendectomy - Immunizations Immunizations up to date: Yes Hx Diphtheria, Pertussis, Tetanus Vaccination: Yes Physical Exam - Vital signs Vitals: Temp Pulse Resp BP Pulse Ox 97.6 F 85 17 130/89 H 100 10/01/20 23:33 10/01/20 23:33 10/01/20 23:33 10/01/20 23:33 10/01/20 23:33 Course - Vital Signs Vital signs: Temp Pulse Resp BP Pulse Ox 97.6 F 85 17 130/89 H 100 10/01/20 23:47 10/01/20 23:33 10/01/20 23:33 10/01/20 23:33 10/01/20 23:33 Doctor's Discharge - Discharge Referrals: ISABEL JOHNSON NP [Primary Care Provider] - Follow up as needed
[2020-10-02 01:16] LABS: ABSOLUTE LYMPHOCYTES (AUTO) 2.2 10^3/uL (0.5-4.7); ABSOLUTE MONOCYTES (AUTO) 0.5 10^3/uL (0.1-1.4); ABSOLUTE NEUT (AUTO) 3.9 10^3/uL (1.7-8.2); MEAN CORPUSCULAR VOLUME 90 fl (80-97); SEGMENTED NEUTROPHILS % (AUTO) 58.7 % (42-78); TOTAL CELLS COUNTED % (AUTO) 100 %
[2020-10-02 01:22] LABS: BASOPHILS % (AUTO) 0.2 % (0-2); EOSINOPHILS % (AUTO) 0.5 % (0-6); HEMATOCRIT 43.7 % (37.9-51.0); HEMOGLOBIN 14.7 g/dL (13.5-17.0); LYMPHOCYTES % (AUTO) 33.6 % (13-45); MEAN CORPUSCULAR HEMOGLOBIN 30.3 pg (27.0-33.4); MEAN CORPUSCULAR HGB CONC 33.7 g/dL (32.0-36.0); PLATELET COUNT 294 10^3/uL (150-450); RED BLOOD COUNT 4.86 10^6/uL (4.35-5.55); RED CELL DISTRIBUTION WIDTH 13.1 % (11.5-14.0); WHITE BLOOD COUNT 6.7 10^3/uL (4.0-10.5)
[2020-10-02 01:30] LABS: ALKALINE PHOSPHATASE 91 U/L (38-126); ASPARTATE AMINO TRANSFERASE 19 U/L (17-59); BILIRUBIN,DIRECT 0.3 mg/dL (0.0-0.4); BLOOD UREA NITROGEN 17 mg/dL (7-20); CALCIUM 10.2 mg/dL (8.4-10.2); TOTAL PROTEIN 7.8 g/dL (6.3-8.2)
[2020-10-02 01:34] LABS: APPEARANCE,URINE CLEAR; BILIRUBIN,URINE NEGATIVE (NEGATIVE); COLOR,URINE STRAW; GLUCOSE, URINE >=500 mg/dL (NEGATIVE); KETONES,URINE 20 mg/dL (NEGATIVE); LEUKOCYTE ESTERASE,URINE NEGATIVE (NEGATIVE); NITRITE,URINE NEGATIVE (NEGATIVE); PROTEIN,URINE NEGATIVE (NEGATIVE); URINE SPECIFIC GRAVITY 1.032; UROBILINOGEN,URINE NEGATIVE mg/dL (<2.0)
[2020-10-02 01:35] LABS: CARBON DIOXIDE 23 mmol/L (22-30); CHLORIDE 86 mmol/L (98-107)
[2020-10-02 01:36] LABS: ANION GAP 21 (5-19)
[2020-10-02 01:39] LABS: GLUCOSE 614 mg/dL (75-110)
[2020-10-02] MEDS ORDERED: NORMAL SALINE 1000 ML 1,000 ML IV ONE ×3 (01:45→05:32)
[2020-10-02] MEDS ORDERED: HYDROMORPHONE HCL INJ/PF 2 MG/ML AMPULE IV PRN ×2 (02:51→06:02)
[2020-10-02] MEDS ORDERED: ONDANSETRON HCL INJ/PF 4 MG/2 ML SDV IV ONE (02:51)
[2020-10-02 03:56] LABS: VENOUS BLOOD BASE EXCESS -7.4 mmol/L; VENOUS BLOOD HCO3 18.3 mmol/L (20-32); VENOUS BLOOD PCO2 37.7 mmHg (35-63); VENOUS BLOOD PH 7.3 (7.30-7.42)
--- NOTE | 2020-10-02 04:10 | ER Document Report ---
ED General - General Chief Complaint: Abdominal Pain Stated Complaint: SOB/ABDOMINAL PAIN/NAUSEA Time Seen by Provider: 10/01/20 23:45 Primary Care Provider: ISABEL JOHNSON NP [Primary Care Provider] - Follow up as needed Mode of Arrival: Ambulatory TRAVEL OUTSIDE OF THE [place] IN LAST 30 DAYS: No - HPI Notes: Chief Complaint: Nominal pain Historian: History obtained from patient HPI: This is a 25-year-old male with history of type 1 diabetes since the ER with upper abdominal pain and nausea x1 day. Patient admits to not closely monitoring his blood sugars at home and is only taking his nightly Lantus not his Humalog. Unsure of his last blood sugar check. Patient says abdominal pain is to the upper abdomen and nonradiating. He has nausea but no vomiting. He believes he had a fever yesterday up to 102 but that has since resolved. No ur inary or bowel changes. Denies chest pain, shortness of breath ROS: Constitutional: no fevers. HEENT: no FLOWERS, sore throat, or vision changes. CV: no chest pain or palpitations. Resp: no cough or SOB. GI: Upper abdominal pain. Nausea. : no dysuria, hematuria, or incont. MSK: no back pain, no joint swelling/redness. Skin: no rashes or itching. Neuro: no seizures, weakness, numbness, or confusion. Hematological: no ecchymosis or easy bleeding. Endocrine: Uncontrolled type I diabetic Psych: no SI/HI, AH/VH or memory loss. PMHx: Reviewed and agree as charted by RN. PSHx: Reviewed and agree as charted by RN. SOCHx: Reviewed and agree as charted by RN. FHX: No significant familial comorbid conditions directly related to patient complaint Current Medications: Reviewed and agree with the patient medications as charted by the RN. Allergies: Reviewed and agree with the listed allergies as charted by the RN Physical Exam: Vitals: Reviewed in chart as documented by RN. General: Alert and in mild distress due to pain Head: Normocephalic; atraumatic Eyes: PERRLA, Conjunctivae clear sclerae non-icteric bilat ENT: no soft palate swelling or uvular deviation Neck: trachea midline, no unilateral swelling/tenderness/lymphadenopathy CV: RRR, no M/R/G; symmetric distal pulses Resp: respirations even and unlabored, CTA bilat. GI: abd soft and nondistended. Epigastric tenderness with voluntary guarding. Normal BS. no masses/HSM. no CVAT bilat MSK: FROM of all extremities. No midline CTL spine tenderness/deformity Skin: warm, moist, good turgor. no rash/lesions Neuro: Alert and oriented X 4. following CN 2-12 intact. no unilateral weakness/numbness Psych: No SI/HI or AH/VH. ED Results: Medical Decision-making/Differential Diagnosis: Consider various etiologies including but not limited to Abdominal pain, Hernia, Acute Gastritis, Appendicitis, Partial or Complete small bowel obstruction, Cholecysitis, Diverticulitis, Gastroenteritis, GERD, Nephrolithiasis, Pancreatitis, Peptic Ulcer Disease, Urinary Tract Infection, Pyelonephritis, Infection, metabolic derangement, ect plan - Labs, urine, CT abdomen and pelvis, IV fluid hydration, prn opiate analgesia, prn antiemetics, and a period of observation in the emergency department for frequent reassessments. Patient's glucose 600. Normal anion gap. No evidence of DKA at this time Lipase greater than 1000. Suspect pancreatitis. Patient n.p.o. and CT abdomen pelvis with IV contrast ordered. Patient says he has no history of pancreatitis. IV fluids infusing patient on second liter. Blood sugar recheck into the mid 400s. CBC within normal limits. Suspect patient will likely be an admission considering uncontrolled type I diabetic with first case of pancreatitis. Pending CT scan for final plan and disposition. This course of action was discussed with the patient and/or family. They were amenable to this, verbalized understanding, and were without further questions. Diagnosis: Condition: Disposition: - Related Data Allergies/Adverse Reactions: No Known Allergies Allergy (Verified 01/02/17 13:49) Home Medications: HUMALOG. LANTUS. ZOFRAN Past Medical History - General Information source: Patient - Social History Smoking Status: Never Smoker Chew tobacco use (# tins/day): No Frequency of alcohol use: Occasional Drug Abuse: None Family History: Reviewed & Not Pertinent - Past Medical History Cardiac Medical History: Denies: Hx Congestive Heart Failure, Hx DVT, Hx Heart Attack, Hx Hypercholesterolemia, Hx Hypertension, Hx Pulmonary Embolism Pulmonary Medical History: Denies: Hx Asthma, Hx COPD Neurological Medical History: Reports: Hx Seizures - Seizures 2 - 3 years of age. None since then. Not on antiepileptic. Endocrine Medical History: Reports: Hx Diabetes Mellitus Type 1. Denies: Hx Diabetes Mellitus Type 2, Hx Hyperthyroidism, Hx Hypothyroidism Renal/ Medical History: Denies: Hx Peritoneal Dialysis GI Medical History: Denies: Hx Cirrhosis, Hx Gastroesophageal Reflux Disease, Hx Hepatitis Musculoskeletal Medical History: Denies Hx Arthritis Psychiatric Medical History: Denies: Hx Depression Infectious Medical History: Denies: Hx Hepatitis Past Surgical History: Reports: Hx Appendectomy - Immunizations Immunizations up to date: Yes Hx Diphtheria, Pertussis, Tetanus Vaccination: Yes Physical Exam - Vital signs Vitals: Temp Pulse Resp BP Pulse Ox 97.6 F 85 17 130/89 H 100 10/01/20 23:33 10/01/20 23:33 10/01/20 23:33 10/01/20 23:33 10/01/20 23:33 Course - Re-evaluation Re-evalutation: 10/02/20 05:31 ct scan reviewed- no acute findings consulted hospitalist- will admit for acute pancreatitis and uncontrolled type 1 DM - Vital Signs Vital signs: Temp Pulse Resp BP Pulse Ox 97.6 F 85 17 130/89 H 100 10/01/20 23:47 10/01/20 23:33 10/01/20 23:33 10/01/20 23:33 10/01/20 23:33 - Laboratory Results Result Diagrams: 10/02/20 00:25 10/02/20 00:25 Laboratory Results Interpreted: 10/02/20 10/02/20 10/02/20 00:25 00:25 03:33 VBG HCO3 18.3 L Sodium 130.4 L Chloride 86 L Anion Gap 21 H Glucose 614 H* Lipase 1010.7 H Urine Glucose (UA) >=500 H Urine Ketones 20 H Critical Laboratory Results Reviewed: Yes - dr sylvester aware- glucose 600. lipsae 1010 Attending or Supervising Physician who Reviewed Labs: LOGAN SYLVESTER IV - Radiology Results Critical Radiology Results Reviewed: No Critical Results Discharge - Discharge Clinical Impression: Type 1 diabetes mellitus with hyperglycemia, with long-term current use of ins ulin Pancreatitis, acute Qualifiers: Pancreatitis type: unspecified pancreatitis type Acute pancreatitis complication: unspecified Qualified Code(s): K85.90 - Acute pancreatitis without necrosis or infection, unspecified Condition: Stable Disposition: ADMITTED INPATIENT Admitting Provider: Dr Sung Unit Admitted: Medical Floor Referrals: ISABEL JOHNSON NP [Primary Care Provider] - Follow up as needed
--- NOTE | 2020-10-02 05:09 | RADIOLOGY REPORT (SQ) ---
CT abdomen and pelvis with contrast on 10/02/2020 at 4:10 AM CLINICAL INDICATION: Acute pancreatitis, generalized abdominal pain, diabetes, hyperglycemia TECHNIQUE: Multiple axial images are obtained throughout the abdomen and pelvis following the administration of IV contrast, 73 mL of Omnipaque 350contrast was administered intravenously without complication. This exam was performed according to our departmental dose-optimization program, which includes automated exposure control, adjustment of the mA and/or kV according to patient size and/or use of iterative reconstruction technique. Total DLP is 339.66 mGy*cm. COMPARISON: 01/02/2017 FINDINGS: Abdomen: The lung bases are clear. The solid abdominal organs are unremarkable. No definite CT evidence of acute pancreatitis is noted. There is no abdominal adenopathy. There is no free fluid or free air within the abdomen. The abdominal portion of the GI tract is unremarkable. Pelvis: Urinary bladder is distended. There is no pelvic adenopathy. The patient is status post appendectomy. The pelvic portion of the GI tract is unremarkable. No acute bony abnormality is noted. IMPRESSION: No acute abnormality.
[2020-10-02] MEDS ORDERED: ACETAMINOPHEN 325 MG TABLET PO PRN (05:57)
[2020-10-02] MEDS ORDERED: ONDANSETRON HCL INJ/PF 4 MG/2 ML SDV IV PRN (05:57)
[2020-10-02] MEDS ORDERED: GLUCAGON,HUMAN RECOMB 1 MG INJ IM PRN (06:04)
[2020-10-02] MEDS ORDERED: DEXTROSE 40% GEL 15 GM TUBE PO PRN ×2 (06:04)
[2020-10-02] MEDS ORDERED: DEXTROSE 50%-WATER 25 GM/50 ML DISP.SYRIN IV PRN ×2 (06:04)
--- NOTE | 2020-10-02 06:20 | PDOC H&P ---
History of Present Illness Admission Date/PCP: 10/02/20 05:45 ISABEL JOHNSON NP Patient complains of: Abdominal pain History of Present Illness: CHRIS LUQUE is a 25 year old male with a history of type 1 diabetes who presents with a 1 day duration of sharp epigastric pain which he rates 7/10 intensity, aggravated by eating and movement but has not noticed any relieving factor. He also reported associated nausea but denies vomiting. Patient admits that he has not been very compliant with his insulin lately. He reports that he had a fever of 102 2 days back. He denies any cough, shortness of breath, dysuria, or any change in his bowel habit. He states that he was admitted to the hospital 3 months back for management of DKA. He drinks alcohol oc casionally about every other week. On arrival his blood sugar was found to be 614 with a gap of 21, bicarb 23 and pH on venous blood gas was 7.30. Patient was hydrated with 3 L of IV fluid at the ED and was given short-acting insulin and his last blood sugar was in the 400s. He has elevated lipase of [address] abdomen showed no clear signs of pancreatitis. Past Medical History Cardiac Medical History: Denies: Congestive Heart Failure, DVT, Myocardial Infarction, Hyperlipidema, Hypertension, Pulmonary Embolism Pulmonary Medical History: Denies: Asthma, Chronic Obstructive Pulmonary Disease (COPD) Neurological Medical History: Reports: Seizures - Seizures 2 - 3 years of age. None since then. Not on antiepileptic. Endocrine Medical History: Reports: Diabetes Mellitus Type 1 Denies: Diabetes Mellitus Type 2, Hyperthyroidism, Hypothyroidism GI Medical History: Denies: Cirrhosis, Gastroesophageal Reflux Disease, Hepatitis Musculoskeltal Medical History: Denies: Arthritis Psychiatric Medical History: Denies: Depression Past Surgical History Past Surgical History: Reports: Appendectomy Social History Information Source: Patient Lives with: Family Smoking Status: Never Smoker Electronic Cigarette use?: No Frequency of Alcohol Use: None Hx Recreational Drug Use: No Drugs: None Hx Prescription Drug Abuse: No - Advance Directive Resuscitation Status: Full Code Family History Family History: Reviewed & Not Pertinent Parental Family History Reviewed: Yes Children Family History Reviewed: Yes Sibling(s) Family History Reviewed.: Yes Medication/Allergy Home Medications: Insulin Aspart [Novolog Insulin (Aspart) 100 unit/mL] 0 unit SUBCUT .SLD SCALE 01/02/17 Ondansetron HCl [Zofran 4 mg Tablet] 1 tab PO ASDIR PRN 01/02/17 Oxycodone HCl/Acetaminophen [Percocet 5-325 mg Tablet] 1 tab PO ASDIR PRN #25 tablet 01/03/17 Allergies/Adverse Reactions: No Known Allergies Allergy (Verified 01/02/17 13:49) Review of Systems Constitutional: PRESENT: as per HPI. ABSENT: chills, headache(s), weight gain, weight loss Eyes: ABSENT: visual disturbances Ears: ABSENT: hearing changes Nose, Mouth, and Throat: ABSENT: headache(s), mouth pain, sore throat Cardiovascular: ABSENT: chest pain, dyspnea on exertion, edema, orthropnea, palpitations Respiratory: ABSENT: cough, hemoptysis Gastrointestinal: PRESENT: as per HPI Genitourinary: ABSENT: dysuria, hematuria Musculoskeletal: ABSENT: joint swelling Integumentary: ABSENT: rash, wounds Neurological: ABSENT: abnormal gait, abnormal speech, confusion, dizziness, focal weakness, syncope Psychiatric: ABSENT: anxiety, depression, homidical ideation, suicidal ideation Endocrine: PRESENT: as per HPI, polydipsia, polyuria Hematologic/Lymphatic: ABSENT: easy bleeding, easy bruising Physical Exam Vital Signs: Temp Pulse Resp BP Pulse Ox 97.8 F 83 14 119/62 99 10/02/20 06:00 10/02/20 05:47 10/02/20 05:47 10/02/20 05:47 10/02/20 05:47 Intake & Output 09/30/20 10/01/20 10/02/20 06:59 06:59 06:59 Intake Total 1999 Balance 1999 Weight 63.4 kg Additional comments: GENERAL APPEARANCE: Alert and oriented x3, in no acute distress HEENT: Normocephalic and atraumatic. No scleral icterus. Moist oral mucosa NECK: Supple. No lymphadenopathy or tenderness. No JVD CHEST: Symmetric. Nontender to palpation. LUNGS: Clear with good air entry bilaterally. No wheezing or crackles HEART: Regular rate and rhythm with normal S1 and S2. No murmurs, gallops, or rubs. ABDOMEN: Flat, soft, active bowel sounds, no direct or rebound tenderness. No organomegaly detected. EXTREMITIES: No cyanosis, clubbing, or edema. MUSCULOSKELETAL: No deformity, atrophy or swelling noted PSYCHIATRIC: Recent and remote memory is intact. Appropriate mood and affect. SKIN: Warm, dry, and well perfused. No lesions or rashes are noted. NEUROLOGIC: No focal sensory or motor deficits are noted. Results Laboratory Results: 10/02/20 00:25 10/02/20 00:25 10/02/20 10/02/20 10/02/20 00:25 00:25 00:25 WBC 6.7 RBC 4.86 Hgb 14.7 Hct 43.7 MCV 90 MCH 30.3 MCHC 33.7 RDW 13.1 Plt Count 294 Seg Neutrophils % 58.7 VBG pH VBG pCO2 VBG HCO3 VBG Base Excess Sodium 130.4 L Potassium 4.0 Chloride 86 L Carbon Dioxide 23 Anion Gap 21 H BUN 17 Creatinine 0.87 Est GFR ( Amer) > 60 Glucose 614 H* Calcium 10.2 Total Bilirubin 1.0 AST 19 Alkaline Phosphatase 91 Total Protein 7.8 Albumin 5.0 Lipase 1010.7 H Urine Color STRAW Urine Appearance CLEAR Urine pH 6.0 Ur Specific [place] 1.032 Urine Protein NEGATIVE Urine Glucose (UA) >=500 H Urine Ketones 20 H Urine Blood NEGATIVE Urine Nitrite NEGATIVE Ur Leukocyte Esterase NEGATIVE Urine WBC (Auto) 0 Urine RBC (Auto) 0 10/02/20 03:33 WBC RBC Hgb Hct MCV MCH MCHC RDW Plt Count Seg Neutrophils % VBG pH 7.30 VBG pCO2 37.7 VBG HCO3 18.3 L VBG Base Excess -7.4 Sodium Potassium Chloride Carbon Dioxide Anion Gap BUN Creatinine Est GFR ( Amer) Glucose Calcium Total Bilirubin AST Alkaline Phosphatase Total Protein Albumin Lipase Urine Color Urine Appearance Urine pH Ur Specific [place] Urine Protein Urine Glucose (UA) Urine Ketones Urine Blood Urine Nitrite Ur Leukocyte Esterase Urine WBC (Auto) Urine RBC (Auto) Impressions: Abdomen/Pelvis CT 10/02/20 02:25 IMPRESSION: No acute abnormality. Assessment and Plan - Diagnosis (1) Pancreatitis, acute Qualifiers: Pancreatitis type: unspecified pancreatitis type Acute pancreatitis complication: unspecified Qualified Code(s): K85.90 - Acute pancreatitis without necrosis or infection, unspecified Is this a current diagnosis for this admission?: Yes Plan: Patient presents with symptoms concerning for acute pancreatitis Lipase was elevated at 1010 CT abdomen showed no definite sign of acute pancreatitis Patient has been hydrated with 3 L of IV fluid at the ED Continue normal saline at 150 mL/h and closely monitor volume status and urine output Control pain with Dilaudid 0.5 mg IV every 4 hourly as needed Tylenol as needed for fever Ordered lipid panel to check triglyceride level Placed him on clear liquid diet (2) Type 1 diabetes mellitus with hyperglycemia, with long-term current use of insulin Is this a current diagnosis for this admission?: Yes Plan: Likely due to poor compliance with insulin Blood sugar was 614 on presentation Labs indicate borderline for DKA pH on VBG was 7.30, bicarb was 23, has anion gap of 21 and urine ketone was positive Patient was hydrated with 3 L IV fluid at the ED Latest blood sugar was in the 400s Will check stat BMP and hold off on insulin drip for now Continue IV hydration with NS at 150 mL/h Placed him on sliding scale insulin, hypoglycemia protocol and Accu-Cheks Insulin glargine 30 units nightly Patient currently feels hungry and asking if he can have something to eat Started him on clear liquids and will advance as he tolerates - Time Time Spent with patient: 35 or more minutes Total Critical Time (Minutes): 40 Medications reviewed and adjusted accordingly: Yes Anticipated Discharge Disposition: Home, Self Care Anticipated Discharge Timeframe: within 48 hours - Inpatient Certification Based on my medical assessment, after consideration of the patient's comorbidities, presenting symptoms, or acuity I expect that the services needed warrant INPATIENT care.: Yes I certify that my determination is in accordance with my understanding of Medicare's requirements for reasonable and necessary INPATIENT services [42 CFR 412.3e].: Yes Medical Necessity: Need Close Monitoring Due to Risk of Patient Decompensation, Need For IV Fluids, Risk of Complication if Not Cared For in Hospital
[2020-10-02 07:19] LABS: ANION GAP 15 (5-19); BLOOD UREA NITROGEN 12 mg/dL (7-20); CALCIUM 8.4 mg/dL (8.4-10.2); CARBON DIOXIDE 16 mmol/L (22-30); CHLORIDE 102 mmol/L (98-107); CHOLESTEROL 168.03 mg/dL (0-200); GLUCOSE 372 mg/dL (75-110); POTASSIUM 4.2 mmol/L (3.6-5.0); TRIGLYCERIDES 228 mg/dL (<150)
[2020-10-02 07:30] LABS: DIRECT LDL 122 mg/dL (<100); VLDL CHOLESTEROL 45.6 mg/dL (10-31)
[2020-10-02] MEDS: INSULIN REG, HUMAN 100 UNIT/ML 3 ML VIAL (PYX) SUBCUT SCH ×4 (08:26→22:14)
[2020-10-02] MEDS: NORMAL SALINE 1000 ML 1,000 ML IV PRN ×2 (10:26→17:23)
[2020-10-02] MEDS: FAMOTIDINE 20 MG TABLET PO SCH ×2 (10:27→22:14)
[2020-10-02] MEDS: ENOXAPARIN SODIUM INJ 40 MG/0.4 ML DISP.SYRIN SUBCUT SCH (10:29)
--- NOTE | 2020-10-02 12:33 | PDOC PROGRESS REPORT ---
Subjective Date:: 10/02/20 Subjective:: The patient is a 25-year-old male with a past medical history of insulin-dependent diabetes mellitus who was admitted 10/02/2020 with acute pancreatitis. Patient was seen on morning rounds. He was found resting in bed, comfortably, on room air. He is sleeping soundly and woke briefly when I said his name. Abdominal discomfort is somewhat improved. No nausea at this time. Further denies fever, chills, chest pain, palpitations, dyspnea, cough, vomiting and diarrhea. No questions or concerns. No concerns per nursing. Reason For Visit: ACUTE PANCREATITIS,TYPE 2 DIABETES WITH HYPER Physical Exam Vital Signs: Temp Pulse Resp BP Pulse Ox 98.5 F 81 18 138/68 H 100 10/02/20 06:55 10/02/20 06:55 10/02/20 06:55 10/02/20 06:55 10/02/20 06:55 Intake & Output 10/01/20 10/02/20 10/03/20 06:59 06:59 06:59 Intake Total 1999 1000 Balance 1999 1000 Weight 63.4 kg General appearance: PRESENT: no acute distress, cooperative, well-developed, well-nourished Head exam: PRESENT: atraumatic, normocephalic Eye exam: PRESENT: conjunctiva pink, EOMI, PERRLA. ABSENT: scleral icterus Mouth exam: PRESENT: moist, tongue midline Respiratory exam: PRESENT: clear to auscultation saravanan, symmetrical, unlabored. ABSENT: rales, rhonchi, wheezes Cardiovascular exam: PRESENT: RRR, +S1, +S2. ABSENT: diastolic murmur, rubs, systolic murmur Vascular exam: PRESENT: normal capillary refill GI/Abdominal exam: PRESENT: normal bowel sounds, soft. ABSENT: distended, guarding, mass, organolmegaly, rebound, tenderness Extremities exam: PRESENT: full ROM. ABSENT: calf tenderness, clubbing, pedal edema Neurological exam: PRESENT: alert, awake, oriented to person, oriented to place, oriented to time, oriented to situation, CN II-XII grossly intact. ABSENT: motor sensory deficit Psychiatric exam: PRESENT: appropriate affect, normal mood. ABSENT: homicidal ideation, suicidal ideation Skin exam: PRESENT: dry, intact, warm. ABSENT: cyanosis, rash Results Laboratory Results: 10/02/20 00:25 10/02/20 06:31 10/02/20 10/02/20 10/02/20 00:25 00:25 00:25 WBC 6.7 RBC 4.86 Hgb 14.7 Hct 43.7 MCV 90 MCH 30.3 MCHC 33.7 RDW 13.1 Plt Count 294 Seg Neutrophils % 58.7 VBG pH VBG pCO2 VBG HCO3 VBG Base Excess Sodium 130.4 L Potassium 4.0 Chloride 86 L Carbon Dioxide 23 Anion Gap 21 H BUN 17 Creatinine 0.87 Est GFR ( Amer) > 60 Glucose 614 H* Calcium 10.2 Total Bilirubin 1.0 AST 19 Alkaline Phosphatase 91 Total Protein 7.8 Albumin 5.0 Triglycerides Cholesterol LDL Cholesterol Direct VLDL Cholesterol HDL Cholesterol Lipase 1010.7 H Urine Color STRAW Urine Appearance CLEAR Urine pH 6.0 Ur Specific [place] 1.032 Urine Protein NEGATIVE Urine Glucose (UA) >=500 H Urine Ketones 20 H Urine Blood NEGATIVE Urine Nitrite NEGATIVE Ur Leukocyte Esterase NEGATIVE Urine WBC (Auto) 0 Urine RBC (Auto) 0 10/02/20 10/02/20 03:33 06:31 WBC RBC Hgb Hct MCV MCH MCHC RDW Plt Count Seg Neutrophils % VBG pH 7.30 VBG pCO2 37.7 VBG HCO3 18.3 L VBG Base Excess -7.4 Sodium 133.1 L Potassium 4.2 Chloride 102 Carbon Dioxide 16 L Anion Gap 15 BUN 12 Creatinine 0.68 Est GFR ( Amer) > 60 Glucose 372 H Calcium 8.4 Total Bilirubin AST Alkaline Phosphatase Total Protein Albumin Triglycerides 228 H Cholesterol 168.03 LDL Cholesterol Direct 122 H VLDL Cholesterol 45.6 H HDL Cholesterol 35 L Lipase Urine Color Urine Appearance Urine pH Ur Specific [place] Urine Protein Urine Glucose (UA) Urine Ketones Urine Blood Urine Nitrite Ur Leukocyte Esterase Urine WBC (Auto) Urine RBC (Auto) Impressions: Abdomen/Pelvis CT 10/02/20 02:25 IMPRESSION: No acute abnormality. Assessment and Plan - Diagnosis (1) Pancreatitis, acute Qualifiers: Pancreatitis type: unspecified pancreatitis type Acute pancreatitis complication: unspecified Qualified Code(s): K85.90 - Acute pancreatitis without necrosis or infection, unspecified Is this a current diagnosis for this admission?: Yes Plan: Patient presents with symptoms concerning for acute pancreatitis Lipase was elevated at 1010 CT abdomen showed no definite sign of acute pancreatitis Triglycerides 228 A1C >14% Continue normal saline at 150 mL/h and closely monitor volume status and urine output Control pain with Dilaudid 0.5 mg IV every 4 hourly as needed Tylenol as needed for fever Placed him on clear liquid diet Follow up chemistry and lipase (2) Type 1 diabetes mellitus with hyperglycemia, with long-term current use of insulin Is this a current diagnosis for this admission?: Yes Plan: Secondary to poor compliance with insulin Blood sugar was 614 on presentation Labs indicate borderline for DKA pH on VBG was 7.30, bicarb was 23, has anion gap of 21 and urine ketone was positive A1C >14% Placed him on sliding scale insulin, hypoglycemia protocol and Accu-Cheks Insulin glargine 30 units nightly Clear liquids; will advance to consistent carb as tolerated. pattern repair person and patient educator consulted. Hypoglycemia protocol. (3) Hyperlipidemia Is this a current diagnosis for this admission?: Yes Plan: Lipid panel reveals triglycerides 228, total cholesterol 168, LDL 122, HDL 35. We will discuss with patient importance of dietary changes. As he has insulin-dependent diabetes mellitus, will start on low-dose atorvastatin. (4) Hypertension Is this a current diagnosis for this admission?: Yes Plan: Blood pressures are noted to be elevated. Possibly related to pain. Will provide appropriate pain control. Continue to monitor blood pressures. Again, as he does have IDDM, he may benefit from initiation of lisinopril for renal protective measures. - Time Time Spent with patient: 35 or more minutes Medications reviewed and adjusted accordingly: Yes Anticipated Discharge Disposition: Home, Self Care Anticipated Discharge Timeframe: within 24 hours
[2020-10-02] MEDS ORDERED: ATORVASTATIN CALCIUM 10 MG TABLET PO SCH (22:00)
[2020-10-02] MEDS ORDERED: INSULIN GLARGINE,HUM.REC.ANLOG 1,000 UNIT/10 ML VIAL SUBCUT SCH (22:00)
[2020-10-03 05:33] LABS: ANION GAP 11 (5-19); BLOOD UREA NITROGEN 4 mg/dL (7-20); CALCIUM 8.6 mg/dL (8.4-10.2); CARBON DIOXIDE 21 mmol/L (22-30); CHLORIDE 105 mmol/L (98-107); GLUCOSE 102 mg/dL (75-110); POTASSIUM 3.3 mmol/L (3.6-5.0)
[2020-10-03] MEDS: NORMAL SALINE 1000 ML 1,000 ML IV PRN (06:19)
[2020-10-03] MEDS: FAMOTIDINE 20 MG TABLET PO SCH ×2 (06:24→10:14)
[2020-10-03] MEDS: INSULIN REG, HUMAN 100 UNIT/ML 3 ML VIAL (PYX) SUBCUT SCH ×2 (07:14→12:15)
[2020-10-03] MEDS ORDERED: INFLUENZA QUAD (6MOS+) 2020-21 VAC 0.5 ML SYR IM ONE (08:00)
[2020-10-03] MEDS ORDERED: POTASSIUM CHLORIDE 10 MEQ TABLET.ER PO ONE (08:30)
[2020-10-03] MEDS: ENOXAPARIN SODIUM INJ 40 MG/0.4 ML DISP.SYRIN SUBCUT SCH (10:14)
[2020-10-03 10:32] VITALS: BP 119/62
--- NOTE | 2020-10-03 15:53 | PDOC DISCHARGE SUMMARY ---
Impression - Admit/DC Date/PCP Admission Date/Primary Care Provider: 10/02/20 05:45 ISABEL JOHNSON NP Discharge Date: 10/03/20 - Discharge Diagnosis (1) Pancreatitis, acute Is this a current diagnosis for this admission?: Yes (2) Type 1 diabetes mellitus with hyperglycemia, with long-term current use of insulin Is this a current diagnosis for this admission?: Yes (3) Hyperlipidemia Is this a current diagnosis for this admission?: Yes (4) Hypertension Is this a current diagnosis for this admission?: Yes - Additional Information Resuscitation Status: Full Code Discharge Diet: Diabetic Discharge Activity: Activity As Tolerated, Balance Activity w/Rest Referrals: ISABEL JOHNSON NP [Primary Care Provider] - Follow up as needed (PATIENT WILL MAKE OWN APPT.) Prescriptions: Atorvastatin Calcium [Lipitor 10 mg Tablet] 10 mg PO QHS #30 tablet Home Medications: Insulin Glargine,Hum.rec.anlog [Lantus Insulin 100 Unit/mL Insulin Pen] 35 unit SUBCUT DAILY 10/02/20 Insulin Lispro [Humalog Kwikpen U-100] 0 unit SQ .SLIDING SCALE 10/02/20 Acetaminophen [Tylenol 325 mg Tablet] 650 mg PO Q4HP PRN tablet 10/03/20 Atorvastatin Calcium [Lipitor 10 mg Tablet] 10 mg PO QHS #30 tablet 10/03/20 History of Present Illiness History of Present Illness: Per H&P by Dr. Sung: CHRIS LUQUE is a 25 year old male with a history of type 1 diabetes who presents with a 1 day duration of sharp epigastric pain which he rates 7/10 intensity, aggravated by eating and movement but has not noticed any relieving factor. He also reported associated nausea but denies vomiting. Patient admits that he has not been very compliant with his insulin lately. He reports that he had a fever of 102 2 days back. He denies any cough, shortness of breath, dysuria, or any change in his bowel habit. He states that he was admitted to the hospital 3 months back for management of DKA. He drinks alcohol occasionally about every other week. On arrival his blood sugar was found to be 614 with a gap of 21, bicarb 23 and pH on venous blood gas was 7.30. Patient was hydrated with 3 L of IV fluid at the ED and was given short-acting insulin and his last blood sugar was in the 400s. He has elevated lipase of [address] abdomen showed no clear signs of pancreatitis. Hospital Course Hospital Course: (1) Pancreatitis, acute Resolved; now asymptomatic and tolerating a soft/low residue diet. Patient presents with symptoms concerning for acute pancreatitis Lipase 1010-> 64.5 CT abdomen showed no definite sign of acute pancreatitis Triglycerides 228 A1C >14% Patient was admitted to the medical floor. He is placed in n.p.o. status and treated with aggressive IV fluid hydration, analgesics and antiemetics as needed. As his symptoms resolved, he was slowly advanced to a soft, low residue diet which he is tolerating well. He has now maximized his hospital benefit and is stable for discharge to home. (2) Type 1 diabetes mellitus with hyperglycemia, with long-term current use of insulin Secondary to poor compliance with insulin Blood sugar was 614 on presentation Labs indicate borderline for DKA pH on VBG was 7.30, bicarb was 23, has anion gap of 21 and urine ketone was positive A1C >14% Resume outpatient insulin regimen at discharge with improved compliance. Patient acknowledges that he has not been taking his insulin regularly and as required. Close outpatient follow up. (3) Hyperlipidemia Lipid panel reveals triglycerides 228, total cholesterol 168, LDL 122, HDL 35. Discussed the importance of dietary changes. As he has insulin-dependent diabetes mellitus, have started on low-dose atorvastatin. (4) Hypertension Resolved; likely related to pain. Outpatient follow up. Physical Exam Vital Signs: Temp Pulse Resp BP Pulse Ox 97.4 F 69 16 119/62 100 10/03/20 10:30 10/03/20 10:30 10/03/20 10:30 10/03/20 10:30 10/03/20 10:30 Intake & Output 10/02/20 10/03/20 10/04/20 06:59 06:59 06:59 Intake Total 1999 4735 Balance 1999 4739 Weight 63.4 kg 59.4 kg General appearance: PRESENT: no acute distress, well-developed, well-nourished Head exam: PRESENT: atraumatic, normocephalic Eye exam: PRESENT: conjunctiva pink, EOMI, PERRLA. ABSENT: scleral icterus Mouth exam: PRESENT: moist, tongue midline Respiratory exam: PRESENT: clear to auscultation saravanan, symmetrical, unlabored, o ther - room air. ABSENT: rales, rhonchi, wheezes Cardiovascular exam: PRESENT: RRR. ABSENT: diastolic murmur, rubs, systolic murmur Vascular exam: PRESENT: normal capillary refill GI/Abdominal exam: PRESENT: normal bowel sounds, soft. ABSENT: distended, guarding, mass, organolmegaly, rebound, tenderness - tolerating a soft, low residue diet Rectal exam: PRESENT: deferred Extremities exam: PRESENT: full ROM. ABSENT: calf tenderness, clubbing, pedal edema Musculoskeletal exam: PRESENT: ambulatory Neurological exam: PRESENT: alert, awake, oriented to person, oriented to place, oriented to time, oriented to situation, CN II-XII grossly intact. ABSENT: motor sensory deficit Psychiatric exam: PRESENT: appropriate affect, normal mood. ABSENT: homicidal ideation, suicidal ideation Skin exam: PRESENT: dry, intact, warm. ABSENT: cyanosis, rash Results Laboratory Results: WBC 6.7 10^3/uL (4.0-10.5) 10/02/20 00:25 RBC 4.86 10^6/uL (4.35-5.55) 10/02/20 00:25 Hgb 14.7 g/dL (13.5-17.0) 10/02/20 00:25 Hct 43.7 % (37.9-51.0) 10/02/20 00:25 MCV 90 fl (80-97) 10/02/20 00:25 MCH 30.3 pg (27.0-33.4) 10/02/20 00:25 MCHC 33.7 g/dL (32.0-36.0) 10/02/20 00:25 RDW 13.1 % (11.5-14.0) 10/02/20 00:25 Plt Count 294 10^3/uL (150-450) 10/02/20 00:25 Lymph % (Auto) 33.6 % (13-45) 10/02/20 00:25 [place] % (Auto) 7.0 % (3-13) 10/02/20 00:25 Eos % (Auto) 0.5 % (0-6) 10/02/20 00:25 Baso % (Auto) 0.2 % (0-2) 10/02/20 00:25 Absolute Neuts (auto) 3.9 10^3/uL (1.7-8.2) 10/02/20 00:25 Absolute Lymphs (auto) 2.2 10^3/uL (0.5-4.7) 10/02/20 00:25 Absolute Monos (auto) 0.5 10^3/uL (0.1-1.4) 10/02/20 00:25 Absolute Eos (auto) 0.0 10^3/uL (0.0-0.6) 10/02/20 00:25 Absolute Basos (auto) 0.0 10^3/uL (0.0-0.2) 10/02/20 00:25 Seg Neutrophils % 58.7 % (42-78) 10/02/20 00:25 VBG pH 7.30 (7.30-7.42) 10/02/20 03:33 VBG pCO2 37.7 mmHg (35-63) 10/02/20 03:33 VBG HCO3 18.3 mmol/L (20-32) L 10/02/20 03:33 VBG Base Excess -7.4 mmol/L 10/02/20 03:33 Sodium 137.1 mmol/L (137-145) 10/03/20 04:19 Potassium 3.3 mmol/L (3.6-5.0) L 10/03/20 04:19 Chloride 105 mmol/L (98-107) 10/03/20 04:19 Carbon Dioxide 21 mmol/L (22-30) L 10/03/20 04:19 Anion Gap 11 (5-19) 10/03/20 04:19 BUN 4 mg/dL (7-20) L 10/03/20 04:19 Creatinine 0.49 mg/dL (0.52-1.25) L 10/03/20 04:19 Est GFR ( Amer) > 60 (>60) 10/03/20 04:19 Est GFR (MDRD) Non-Af > 60 (>60) 10/03/20 04:19 Glucose 102 mg/dL (75-110) 10/03/20 04:19 POC Glucose 97 mg/dL (70-110) 10/03/20 06:07 Hemoglobin A1c % > 14.0 % (4.7-6.0) H 10/02/20 11:26 Calcium 8.6 mg/dL (8.4-10.2) 10/03/20 04:19 Total Bilirubin 1.0 mg/dL (0.2-1.3) 10/02/20 00:25 Direct Bilirubin 0.3 mg/dL (0.0-0.4) 10/02/20 00:25 Neonat Total Bilirubin Not Reportable 10/02/20 00:25 Neonat Direct Bilirubin Not Reportable 10/02/20 00:25 Neonat Indirect Bili Not Reportable 10/02/20 00:25 AST 19 U/L (17-59) 10/02/20 00:25 ALT 14 U/L (<50) 10/02/20 00:25 Alkaline Phosphatase 91 U/L (38-126) 10/02/20 00:25 Total Protein 7.8 g/dL (6.3-8.2) 10/02/20 00:25 Albumin 5.0 g/dL (3.5-5.0) 10/02/20 00:25 Triglycerides 228 mg/dL (<150) H 10/02/20 06:31 Cholesterol 168.03 mg/dL (0-200) 10/02/20 06:31 LDL Cholesterol Direct 122 mg/dL (<100) H 10/02/20 06:31 VLDL Cholesterol 45.6 mg/dL (10-31) H 10/02/20 06:31 HDL Cholesterol 35 mg/dL (>40) L 10/02/20 06:31 Lipase 64.5 U/L (23-300) 10/03/20 04:19 Urine Color STRAW 10/02/20 00:25 Urine Appearance CLEAR 10/02/20 00:25 Urine pH 6.0 (5.0-9.0) 10/02/20 00:25 Ur Specific [place] 1.032 10/02/20 00:25 Urine Protein NEGATIVE mg/dL (NEGATIVE) 10/02/20 00:25 Urine Glucose (UA) >=500 mg/dL (NEGATIVE) H 10/02/20 00:25 Urine Ketones 20 mg/dL (NEGATIVE) H 10/02/20 00:25 Urine Blood NEGATIVE (NEGATIVE) 10/02/20 00:25 Urine Nitrite NEGATIVE (NEGATIVE) 10/02/20 00:25 Urine Bilirubin NEGATIVE (NEGATIVE) 10/02/20 00:25 Urine Urobilinogen NEGATIVE mg/dL (<2.0) 10/02/20 00:25 Ur Leukocyte Esterase NEGATIVE (NEGATIVE) 10/02/20 00:25 Urine WBC (Auto) 0 /HPF 10/02/20 00:25 Urine RBC (Auto) 0 /HPF 10/02/20 00:25 Urine Mucus (Auto) RARE /LPF 10/02/20 00:25 Urine Ascorbic Acid NEGATIVE (NEGATIVE) 10/02/20 00:25 Impressions: Abdomen/Pelvis CT 10/02/20 02:25 IMPRESSION: No acute abnormality. Plan Plan of Treatment: Patient is discharged home, in stable condition. He is advised follow-up with his primary care provider within 1 week. He is instructed to eat a consistent carb diet to take his insulin as prescribed. He confirms that he does not require refills of any of his insulin. He is advised to return to the emergency department, as needed, for concerning symptoms. Time Spent: Greater than 30 Minutes Stroke Is this a Stroke Patient?: No Acute Heart Failure Is this a Heart Failure Patient?: No
== END 2020-10-03 13:04 | disposition home or self-care (01) ==
LOC: ER 23:28 → INTOOBSV 10-02 05:45 → EH 10-02 05:45 → 4N 10-02 06:47
PROVIDERS: ADMIT Student in an Organized Health Care Education/Training Program; ATTEND Registered Nurse
DX: K85.90 Acute pancreatitis without necrosis or infection, unspecified (principal); E10.65 Type 1 diabetes mellitus with hyperglycemia; E78.5 Hyperlipidemia, unspecified; I10 Essential (primary) hypertension; R06.02 Shortness of breath; Z23 Encounter for immunization; Z79.899 Other long term (current) drug therapy; Z91.14 Patient's other noncompliance with medication regimen; Z90.49 Acquired absence of other specified parts of digestive tract
CPT/HCPCS: 99285; 96361; 96374; 96375; 36415 ×2; 87086; 82962 ×2; 83690 ×2; 85025; 80048; 80053; 81001; 83036; 82803; 80061; 74177; 90686; G0378 ×3; G0008; J1815 ×2; J1170; J2405; J7030 ×2; 90471

== ENCOUNTER 2020-10-10 12:35 | Observation (INO) | payer OTHER ==
--- NOTE | 2020-10-10 13:59 | ER Document Report ---
ED Medical Screen (RME) - General Chief Complaint: Abdominal Pain Stated Complaint: ABDOMINAL PAIN Time Seen by Provider: 10/10/20 13:56 Primary Care Provider: ISABEL JOHNSON NP [Primary Care Provider] - Follow up as needed Mode of Arrival: Ambulatory Information source: Patient Notes: HPI; 25-year-old male presents to the emergency room with abdominal pain that st arted earlier today. Patient states he was admitted last week for pancreatitis was doing well until this morning. Complains of nausea but no vomiting. Not taking anything for his symptoms. PE: Alert and oriented x3. Lungs: Clear to auscultation without rales, rhonchi, wheezes. Heart: Regular rate rhythm without murmurs, rubs, gallops. I have greeted and performed a rapid initial assessment of this patient. A comprehensive ED assessment and evaluation of the patient, analysis of test results and completion of the medical decision making process will be conducted by additional ED providers. I have specifically instructed the patient or family members with the patient to immediately return to any nursing staff should anything change in the patient's condition or with their chief complaint. TRAVEL OUTSIDE OF THE [place] IN LAST 30 DAYS: No - Related Data Allergies/Adverse Reactions: diphenhydramine [From Benadryl Allergy] Adverse Reaction (Verified 10/02/20 07:31) Past Medical History - Past Medical History Cardiac Medical History: Denies: Hx Congestive Heart Failure, Hx DVT, Hx Heart Attack, Hx Hypercholesterolemia, Hx Hypertension, Hx Pulmonary Embolism Pulmonary Medical History: Denies: Hx Asthma, Hx COPD Neurological Medical History: Reports: Hx Seizures - Seizures 2 - 3 years of age. None since then. Not on antiepileptic. Endocrine Medical History: Reports: Hx Diabetes Mellitus Type 1. Denies: Hx Diabetes Mellitus Type 2, Hx Hyperthyroidism, Hx Hypothyroidism Renal/ Medical History: Denies: Hx Peritoneal Dialysis GI Medical History: Denies: Hx Cirrhosis, Hx Gastroesophageal Reflux Disease, Hx Hepatitis Musculoskeltal Medical History: Denies Hx Arthritis Psychiatric Medical History: Denies: Hx Depression Infectious Medical History: Denies: Hx Hepatitis Past Surgical History: Reports: Hx Appendectomy - Immunizations Immunizations up to date: Yes Hx Diphtheria, Pertussis, Tetanus Vaccination: Yes Physical Exam - Vital signs Vitals: Temp Pulse Resp BP Pulse Ox 97.5 F 83 16 128/74 H 100 10/10/20 12:38 10/10/20 12:38 10/10/20 12:38 10/10/20 12:38 10/10/20 12:38 Course - Vital Signs Vital signs: Temp Pulse Resp BP Pulse Ox 97.5 F 83 16 128/74 H 100 10/10/20 12:38 10/10/20 12:38 10/10/20 12:38 10/10/20 12:38 10/10/20 12:38 Doctor's Discharge - Discharge Referrals: ISABEL JOHNSON NP [Primary Care Provider] - Follow up as needed
[2020-10-10 14:45] LABS: APPEARANCE,URINE CLEAR; BILIRUBIN,URINE NEGATIVE (NEGATIVE); COLOR,URINE COLORLESS; GLUCOSE, URINE >=500 mg/dL (NEGATIVE); KETONES,URINE 20 mg/dL (NEGATIVE); LEUKOCYTE ESTERASE,URINE NEGATIVE (NEGATIVE); NITRITE,URINE NEGATIVE (NEGATIVE); PROTEIN,URINE NEGATIVE (NEGATIVE); URINE SPECIFIC GRAVITY 1.026; UROBILINOGEN,URINE NEGATIVE mg/dL (<2.0)
[2020-10-10 14:47] LABS: ABSOLUTE LYMPHOCYTES (AUTO) 0.8 10^3/uL (0.5-4.7); ABSOLUTE MONOCYTES (AUTO) 0.3 10^3/uL (0.1-1.4); ABSOLUTE NEUT (AUTO) 5.2 10^3/uL (1.7-8.2); BASOPHILS % (AUTO) 0.3 % (0-2); EOSINOPHILS % (AUTO) 0.2 % (0-6); HEMATOCRIT 43.6 % (37.9-51.0); HEMOGLOBIN 14.2 g/dL (13.5-17.0); LYMPHOCYTES % (AUTO) 12.7 % (13-45); MEAN CORPUSCULAR HEMOGLOBIN 30.5 pg (27.0-33.4); MEAN CORPUSCULAR HGB CONC 32.6 g/dL (32.0-36.0); MONOCYTES % (AUTO) 4.8 % (3-13); PLATELET COUNT 235 10^3/uL (150-450); RED BLOOD COUNT 4.66 10^6/uL (4.35-5.55); RED CELL DISTRIBUTION WIDTH 13.5 % (11.5-14.0); TOTAL CELLS COUNTED % (AUTO) 100 %; WHITE BLOOD COUNT 6.3 10^3/uL (4.0-10.5)
[2020-10-10 14:52] LABS: MEAN CORPUSCULAR VOLUME 94 fl (80-97)
[2020-10-10 15:10] LABS: ALBUMIN 5.1 g/dL (3.5-5.0); ALKALINE PHOSPHATASE 109 U/L (38-126); AMYLASE 81 U/L (30-110); ASPARTATE AMINO TRANSFERASE 21 U/L (17-59); BILIRUBIN,DIRECT 0.3 mg/dL (0.0-0.4); BILIRUBIN,TOTAL 1.5 mg/dL (0.2-1.3); BLOOD UREA NITROGEN 17 mg/dL (7-20); CALCIUM 9.9 mg/dL (8.4-10.2); TOTAL PROTEIN 7.7 g/dL (6.3-8.2)
[2020-10-10 15:15] LABS: CARBON DIOXIDE 17 mmol/L (22-30); CHLORIDE 84 mmol/L (98-107)
[2020-10-10 15:19] LABS: GLUCOSE 929 mg/dL (75-110)
[2020-10-10 15:21] LABS: ANION GAP 23 (5-19); POTASSIUM 7.1 mmol/L (3.6-5.0)
[2020-10-10] MEDS ORDERED: RINGERS SOLUTION,LACTATED 1,000 ML IV ONE (15:37)
[2020-10-10] MEDS: NORMAL SALINE 1000 ML 1,000 ML IV PRN ×2 (15:45→15:57)
[2020-10-10] MEDS ORDERED: CALCIUM GLUCONATE 1000 MG/10 ML INJ IV ONE (15:46)
[2020-10-10] MEDS ORDERED: SODIUM BICARBONATE 8.4% INJ 50 MEQ/50 ML DISP.SYRIN IV ONE (15:47)
[2020-10-10] MEDS ORDERED: INSULIN REG, HUMAN 100 UNIT/ML 3 ML VIAL (PYX) IV ONE ×3 (15:48→16:14)
[2020-10-10] MEDS ORDERED: SODIUM POLYSTYRENE SULFONATE 15 GM/60 ML PO ONE (15:50)
--- NOTE | 2020-10-10 16:31 | RADIOLOGY REPORT (SQ) ---
EXAM DESCRIPTION: ACUTE ABDOMEN SERIES IMAGES COMPLETED DATE/TIME: 10/10/2020 4:22 pm REASON FOR STUDY: dka/hyperglycemia/ COMPARISON: None. NUMBER OF VIEWS: Three views. TECHNIQUE: Frontal chest, supine abdomen and upright/decubitus abdomen radiographic images acquired. LIMITATIONS: None. FINDINGS: CHEST: Lungs clear of infiltrates. Normal cardiomediastinal silhouette. No pneumothorax or pleural effusion. FREE AIR: None. No abnormal gas collections. BOWEL GAS PATTERN: Nonobstructive pattern. No dilated loops or air fluid levels. Moderate formed sto ol throughout the colon. CALCIFICATIONS: No suspicious calcifications. HARDWARE: Surgical clips overlie right lower quadrant. SOFT TISSUES: No gross mass or suggestion of organomegaly. BONES: No acute fracture. No worrisome bone lesions. OTHER: No other significant finding. IMPRESSION: No evidence of acute intrathoracic process. No evidence of acute intra-abdominal/pelvic process. TECHNICAL DOCUMENTATION: JOB ID: [id number] 2010 [employer]- All Rights Reserved Reading location - IP/workstation name: [email or web address]
--- NOTE | 2020-10-10 17:21 | ER Document Report ---
Entered by ROSE HAJI SCRIBE 10/10/20 1545 Acting as scribe for:YAJAIRA LEVINE MD ED General - General Chief Complaint: Abdominal Pain Stated Complaint: ABDOMINAL PAIN Time Seen by Provider: 10/10/20 13:56 Mode of Arrival: Ambulatory Information source: Patient Notes: This 25 year old male patient with history of DM type 1, presents to the emergency department today with complaints of abdominal pain that began this morning. Patient reports nausea without vomiting. Denies diarrhea, headaches, fever, chills, or seizures. Patient states he has multiple daily injections of insulin for his DM. Patient states he was recently at the hospital for pancreatitis. Patient states he has not been taking good care of himself and is "burnout". Per nurse, patient has a glucose of 929 and potassium of 7.1. TRAVEL OUTSIDE OF THE [place] IN LAST 30 DAYS: No - Related Data Allergies/Adverse Reactions: diphenhydramine [From Benadryl Allergy] Adverse Reaction (Verified 10/02/20 07:31) Past Medical History - General Information source: Patient - Social History Smoking Status: Unknown if Ever Smoked Family History: Reviewed & Not Pertinent Neurological Medical History: Reports: Hx Seizures - Seizures 2 - 3 years of age. None since then. Not on antiepileptic. Endocrine Medical History: Reports: Hx Diabetes Mellitus Type 1 GI Medical History: Reports: Hx Pancreatitis Past Surgical History: Reports: Hx Appendectomy - Immunizations Immunizations up to date: Yes Hx Diphtheria, Pertussis, Tetanus Vaccination: Yes Review of Systems - Review of Systems Constitutional: See HPI, Recent illness. denies: Chills, Fever EENT: No symptoms reported Cardiovascular: No symptoms reported Respiratory: No symptoms reported Gastrointestinal: See HPI, Abdominal pain, Nausea. denies: Diarrhea, Vomiting Genitourinary: No symptoms reported Male Genitourinary: No symptoms reported Musculoskeletal: No symptoms reported Skin: No symptoms reported Hematologic/Lymphatic: No symptoms reported Neurological/Psychological: See HPI. denies: Seizure, Headaches -: Yes All other systems reviewed and negative Physical Exam - Vital signs Vitals: Temp Pulse Resp BP Pulse Ox 97.5 F 83 16 128/74 H 100 10/10/20 12:38 10/10/20 12:38 10/10/20 12:38 10/10/20 12:38 10/10/20 12:38 - General General appearance: Alert - HEENT Head: Normocephalic, Atraumatic Eyes: Normal Pupils: PERRL Mucous membranes: Dry - Respiratory Respiratory status: No respiratory distress Chest status: Nontender Breath sounds: Normal Chest palpation: Normal - Cardiovascular Rhythm: Tachycardia Heart sounds: Normal auscultation Murmur: No - Abdominal Inspection: Normal, Other - soft Distension: No distension Bowel sounds: Normal Tenderness: Nontender - Extremities General upper extremity: Normal inspection, Normal ROM General lower extremity: Normal inspection, Normal ROM. No: Edema - Neurological Neuro grossly intact: Yes Cognition: Normal Orientation: AAOx4 [place] Coma Scale Eye Opening: Spontaneous [place] Coma Scale Verbal: Oriented [place] Coma Scale Motor: Obeys Commands [place] Coma Scale Total: 15 Speech: Normal Motor strength normal: LUE, RUE, LLE, RLE Sensory: Normal - Psychological Associated symptoms: Normal affect, Normal mood - Skin Skin Temperature: Warm Skin Moisture: Dry Skin Color: Normal Course - Re-evaluation Re-evalutation: 10/10/20 19:57 Patient resting comfortably. Patient receiving IV fluids IV insulin and IV insulin drip and medications to treat hyperkalemia. - Vital Signs Vital signs: Temp Pulse Resp BP Pulse Ox 97.5 F 83 17 115/67 100 10/10/20 12:38 10/10/20 12:38 10/10/20 18:30 10/10/20 18:30 10/10/20 18:30 10/10/20 19:57 Vital signs stable - Laboratory Results Result Diagrams: 10/10/20 14:30 10/10/20 17:53 Laboratory Results Interpreted: 10/10/20 10/10/20 10/10/20 14:30 14:30 14:30 Lymph % (Auto) 12.7 L Seg Neutrophils % 82.0 H VBG pH VBG HCO3 Sodium 124.1 L Potassium 7.1 H* Chloride 84 L Carbon Dioxide 17 L Anion Gap 23 H Glucose 929 H* Total Bilirubin 1.5 H Albumin 5.1 H Urine Glucose (UA) >=500 H Urine Ketones 20 H 10/10/20 17:09 Lymph % (Auto) Seg Neutrophils % VBG pH 7.23 L VBG HCO3 14.6 L Sodium Potassium Chloride Carbon Dioxide Anion Gap Glucose Total Bilirubin Albumin Urine Glucose (UA) Urine Ketones 10/10/20 19:57 Critical lab values of's arms glucose greater than 900 with a potassium greater than 7 Critical Laboratory Results Reviewed: Yes Attending or Supervising Physician who Reviewed Labs: YAJAIRA LEVINE - Diabetic ketoacidosis with some metabolic derangement hyperkalemia and acidosis. - Radiology Results Radiology Results Interpreted: 10/10/20 19:59 Acute Abdomen Series 10/10/20 16:05 IMPRESSION: No evidence of acute intrathoracic process. No evidence of acute intra-abdominal/pelvic process. Acute abdominal series shows no evidence of intrathoracic or intra-abdominal pelvic process. Critical Radiology Results Reviewed: No Critical Results - EKG Interpretation by Me Additional EKG results interpreted by me: 10/10/20 19:59 Twelve-lead EKG shows normal sinus rhythm rate of [address] interval normal QRS interval and normal QT interval. No evidence of STEMI. Critical Care Note - Critical Care Note Total time excluding time spent on procedures (mins): 35 - Management of patient with diabetic ketoacidosis with greater than 900 hyperglycemic glucose and greater than 7 hyperkalemia. Discharge - Discharge Clinical Impression: Diabetic ketoacidosis, Hyperglycemia, Hyperkalemia, Type 1 diabetes mellitus Condition: Fair Disposition: ADMITTED INPATIENT Admitting Provider: Eliseo (Hospitalist) Unit Admitted: IMCU I personally performed the services described in the documentation, reviewed and edited the documentation which was dictated to the scribe in my presence, and it accurately records my words and actions.
[2020-10-10 17:23] LABS: URINE AMPHETAMINES SCREEN NEGATIVE; URINE BARBITURATES SCREEN NEGATIVE; URINE BENZODIAZEPINES SCREEN NEGATIVE; URINE COCAINE SCREEN NEGATIVE; URINE MARIJUANA (THC) SCREEN NEGATIVE; URINE METHADONE SCREEN NEGATIVE; URINE PHENCYCLIDINE SCREEN NEGATIVE
[2020-10-10 17:35] LABS: VENOUS BLOOD HCO3 14.6 mmol/L (20-32); VENOUS BLOOD PCO2 35.4 mmHg (35-63); VENOUS BLOOD PH 7.23 (7.30-7.42)
[2020-10-10 18:34] LABS: ANION GAP 19 (5-19); BLOOD UREA NITROGEN 16 mg/dL (7-20); CALCIUM 9.3 mg/dL (8.4-10.2); CARBON DIOXIDE 20 mmol/L (22-30); CHLORIDE 95 mmol/L (98-107)
[2020-10-10 18:45] LABS: POTASSIUM 3.9 mmol/L (3.6-5.0)
[2020-10-10 18:48] LABS: GLUCOSE 516 mg/dL (75-110)
[2020-10-10] MEDS ORDERED: ALBUTEROL SULFATE 0.083% NEB 2.5 MG/3 ML AMPUL NEB PRN (19:07)
[2020-10-10] MEDS ORDERED: DEXTROSE 40% GEL 15 GM TUBE PO PRN ×2 (19:07)
[2020-10-10] MEDS ORDERED: DEXTROSE 50%-WATER 25 GM/50 ML DISP.SYRIN IV PRN ×2 (19:07)
[2020-10-10] MEDS ORDERED: NORMAL SALINE 1000 ML 1,000 ML IV PRN (19:07)
[2020-10-10] MEDS ORDERED: GLUCAGON,HUMAN RECOMB 1 MG INJ SUBCUT PRN (19:07)
[2020-10-10] MEDS ORDERED: ACETAMINOPHEN 325 MG TABLET PO PRN (19:07)
[2020-10-10] MEDS ORDERED: MAG HYDROX/AL HYDROX/SIMETH SUSP 30 ML UDCUP PO PRN (19:15)
[2020-10-10] MEDS ORDERED: ONDANSETRON HCL INJ/PF 4 MG/2 ML SDV IV PRN (19:15)
[2020-10-10] MEDS ORDERED: PROMETHAZINE HCL INJ 25 MG/1 ML VIAL IV PRN (19:15)
[2020-10-10] MEDS ORDERED: NORMAL SALINE 100 ML with INSULIN REGULAR, HUMAN 100 UNIT IV PRN ×2 (19:16)
--- NOTE | 2020-10-10 21:25 | PDOC H&P ---
History of Present Illness Admission Date/PCP: 10/10/20 17:39 ISABEL JOHNSON NP Patient complains of: hyperglycemia History of Present Illness: CHRIS LUQUE is a 25 year old male with a past medical history significant for insulin-dependent diabetes mellitus, medication noncompliance, recent admission for DKA and pancreatitis, hyperlipidemia, and hypertension who presented to the emergency department today with a complaint of uncontrolled blood sugars. Patient reports that overall his blood sugars have been well controlled the last several days with a fasting blood glucose average of "120." He does admit to having missed a few mealtime sliding scale doses over the last week but otherwise is adamant that he has been compliant with his insulin regime nt. He states that this morning his blood sugar was normal but throughout the day he rapidly had increasing glucose despite attempts to correct. He does admit to drinking 1 beer last night. On presentation to the emergency department, he was found to have sodium 124.1, potassium 7.1, anion gap 23 with bicarb 17, and a glucose 929. Urinalysis and acute abdominal series imaging was negative for pertinent findings. CBC was unremarkable. Toxicology negative. He was provided IV fluid boluses, calcium gluconate, and insulin for correction of his potassium. He was then started on an insulin drip. Follow-up chemistry is much improved with sodium 133.5, anion gap 19, bicarb 20, and a glucose of 516. He is referred to the hospitalist service for further evaluation and management of the above stay complaints findings. Past Medical History Cardiac Medical History: Reports: Hyperlipidema Denies: Coronary Artery Disease, Myocardial Infarction, Hypertension, Pulmonary Embolism Pulmonary Medical History: Reports: None EENT Medical History: Reports: None Neurological Medical History: Reports: Seizures - as /toddler Endocrine Medical History: Reports: Diabetes Mellitus Type 1 Denies: Hypothyroidism Renal/ Medical History: Reports: None GI Medical History: Reports: None Musculoskeltal Medical History: Denies: Arthritis Skin Medical History: Reports: None Psychiatric Medical History: Denies: Depression Traumatic Medical History: Reports: None Hematology: Reports: None Infectious Medical History: Reports: None Past Surgical History Past Surgical History: Reports: Appendectomy Social History Information Source: Patient Lives with: Family Smoking Status: Unknown if Ever Smoked Electronic Cigarette use?: No Frequency of Alcohol Use: Occasional Hx Recreational Drug Use: No Drugs: None Hx Prescription Drug Abuse: No - Advance Directive Resuscitation Status: Full Code Family History Family History: Reviewed & Not Pertinent Parental Family History Reviewed: Yes Children Family History Reviewed: Yes Sibling(s) Family History Reviewed.: Yes Medication/Allergy Home Medications: Insulin Glargine,Hum.rec.anlog [Lantus Insulin 100 Unit/mL Insulin Pen] 35 unit SUBCUT DAILY 10/02/20 Insulin Lispro [Humalog Kwikpen U-100] 0 unit SQ .SLIDING SCALE 10/02/20 Acetaminophen [Tylenol 325 mg Tablet] 650 mg PO Q4HP PRN tablet 10/03/20 Atorvastatin Calcium [Lipitor 10 mg Tablet] 10 mg PO QHS #30 tablet 10/03/20 Allergies/Adverse Reactions: diphenhydramine [From Benadryl Allergy] Adverse Reaction (Verified 10/02/20 07:31) Review of Systems Constitutional: ABSENT: chills, fever(s), headache(s), weight gain, weight loss Eyes: ABSENT: visual disturbances Ears: ABSENT: hearing changes Cardiovascular: ABSENT: chest pain, dyspnea on exertion, edema, orthropnea, palpitations Respiratory: ABSENT: cough, hemoptysis Gastrointestinal: PRESENT: abdominal pain, nausea. ABSENT: constipation, diarrhea, hematemesis, hematochezia, vomiting Genitourinary: ABSENT: dysuria, hematuria Musculoskeletal: ABSENT: joint swelling Integumentary: ABSENT: rash, wounds Neurological: ABSENT: abnormal gait, abnormal speech, confusion, dizziness, focal weakness, syncope Psychiatric: ABSENT: anxiety, depression, homidical ideation, suicidal ideation Endocrine: ABSENT: cold intolerance, heat intolerance, polydipsia, polyuria Hematologic/Lymphatic: ABSENT: easy bleeding, easy bruising Physical Exam Vital Signs: Temp Pulse Resp BP Pulse Ox 97.5 F 83 17 115/67 100 10/10/20 12:38 10/10/20 12:38 10/10/20 18:30 10/10/20 18:30 10/10/20 18:30 Intake & Output 10/09/20 10/10/20 10/11/20 06:59 06:59 06:59 Intake Total 3000 Balance 3000 Weight 64.6 kg General appearance: PRESENT: no acute distress, well-developed, well-nourished Head exam: PRESENT: atraumatic, normocephalic Eye exam: PRESENT: conjunctiva pink, EOMI, PERRLA. ABSENT: scleral icterus Mouth exam: PRESENT: moist, tongue midline Respiratory exam: PRESENT: clear to auscultation saravanan, symmetrical, unlabored. ABSENT: rales, rhonchi, wheezes Cardiovascular exam: PRESENT: RRR, tachycardia. ABSENT: diastolic murmur, rubs, systolic murmur Pulses: PRESENT: normal dorsalis pedis pul Vascular exam: PRESENT: normal capillary refill GI/Abdominal exam: PRESENT: normal bowel sounds, soft. ABSENT: distended, guarding, mass, organolmegaly, rebound, tenderness Rectal exam: PRESENT: deferred Extremities exam: PRESENT: full ROM. ABSENT: calf tenderness, clubbing, pedal edema Neurological exam: PRESENT: alert, awake, oriented to person, oriented to place, oriented to time, oriented to situation, CN II-XII grossly intact. ABSENT: motor sensory deficit Psychiatric exam: PRESENT: appropriate affect, normal mood. ABSENT: homicidal ideation, suicidal ideation Skin exam: PRESENT: dry, intact, warm. ABSENT: cyanosis, rash Results Laboratory Results: 10/10/20 14:30 10/10/20 17:53 10/10/20 10/10/20 10/10/20 14:30 14:30 14:30 WBC 6.3 RBC 4.66 Hgb 14.2 Hct 43.6 MCV 94 D MCH 30.5 MCHC 32.6 RDW 13.5 Plt Count 235 Seg Neutrophils % 82.0 H VBG pH VBG pCO2 VBG HCO3 VBG Base Excess Sodium 124.1 L Potassium 7.1 H* Chloride 84 L Carbon Dioxide 17 L Anion Gap 23 H BUN 17 Creatinine 0.87 Est GFR ( Amer) > 60 Glucose 929 H* Calcium 9.9 Total Bilirubin 1.5 H AST 21 Alkaline Phosphatase 109 Total Protein 7.7 Albumin 5.1 H Amylase 81 Lipase 102.1 Urine Color COLORLESS Urine Appearance CLEAR Urine pH 6.0 Ur Specific [place] 1.026 Urine Protein NEGATIVE Urine Glucose (UA) >=500 H Urine Ketones 20 H Urine Blood NEGATIVE Urine Nitrite NEGATIVE Ur Leukocyte Esterase NEGATIVE Urine WBC (Auto) 1 10/10/20 10/10/20 17:09 17:53 WBC RBC Hgb Hct MCV MCH MCHC RDW Plt Count Seg Neutrophils % VBG pH 7.23 L VBG pCO2 35.4 VBG HCO3 14.6 L VBG Base Excess -12.0 Sodium 133.5 L Potassium 3.9 D Chloride 95 L Carbon Dioxide 20 L Anion Gap 19 BUN 16 Creatinine 0.74 Est GFR ( Amer) > 60 Glucose 516 H* Calcium 9.3 Total Bilirubin AST Alkaline Phosphatase Total Protein Albumin Amylase Lipase Urine Color Urine Appearance Urine pH Ur Specific [place] Urine Protein Urine Glucose (UA) Urine Ketones Urine Blood Urine Nitrite Ur Leukocyte Esterase Urine WBC (Auto) Impressions: Acute Abdomen Series 10/10/20 16:05 IMPRESSION: No evidence of acute intrathoracic process. No evidence of acute intra-abdominal/pelvic process. Assessment and Plan - Diagnosis (1) Diabetic ketoacidosis Qualifiers: Diabetes mellitus type: type 1 Diabetes mellitus complication detail: without coma Qualified Code(s): E10.10 - Type 1 diabetes mellitus with ketoacidosis without coma Is this a current diagnosis for this admission?: Yes Plan: Patient is admitted to [facility] on continuous cardiac telemetry. He is provided generous IV fluids. Started on insulin drip. Titrate per protocol. Monitor serial chemistries. N.p.o. with the exception of water and ice chips; strict n.p.o. if he develops vomiting. Registered dietitian leather stitcher consult. (2) Type 1 diabetes mellitus Qualifiers: Diabetes mellitus complication status: with hyperglycemia Qualified Code(s): E10.65 - Type 1 diabetes mellitus with hyperglycemia Is this a current diagnosis for this admission?: Yes Plan: Hemoglobin A1c greater than 14% Discharged last week after admission for pancreatitis and DKA. Patient admits to insulin noncompliance. Currently n.p.o. with exception of water and ice chips. Currently on insulin drip. Patient cannot identify any precipitating factors for his DKA. Hypoglycemia protocol in place. Registered dietitian and leather stitcher consulted. (3) Hyperkalemia Is this a current diagnosis for this admission?: Yes Plan: Secondary to #1. Corrected with IV fluids, calcium gluconate, and insulin. Monitor serial chemistries. He likely has a total body deficit will require replacement. (4) Hyperlipidemia Is this a current diagnosis for this admission?: Yes Plan: When appropriate, advance to a consistent carb/cardiac diet. Resume atorvastatin. (5) Hyperglycemia Is this a current diagnosis for this admission?: Yes Plan: Secondary to #1 and 2. Evaluation and management as above. - Time Time Spent with patient: 35 or more minutes Medications reviewed and adjusted accordingly: Yes Anticipated Discharge Disposition: Home, Self Care Anticipated Discharge Timeframe: within 48 hours
[2020-10-10] MEDS ORDERED: ATORVASTATIN CALCIUM 10 MG TABLET PO SCH (22:00)
[2020-10-10] MEDS ORDERED: INSULIN GLARGINE,HUM.REC.ANLOG 1,000 UNIT/10 ML VIAL (PYX) SUBCUT ONE (22:02)
[2020-10-10] MEDS ORDERED: INSULIN GLARGINE,HUM.REC.ANLOG 1,000 UNIT/10 ML VIAL (PYX) SUBCUT PRN (22:13)
[2020-10-10] MEDS ORDERED: DEXTROSE 5%-NORMAL SALINE 1,000 ML IV PRN (22:13)
[2020-10-10] MEDS ORDERED: INSULIN GLARGINE,HUM.REC.ANLOG 1,000 UNIT/10 ML VIAL SUBCUT ONE (22:30)
[2020-10-10] MEDS: FAMOTIDINE INJ/PF 20 MG/2 ML SDV IV SCH (23:44)
[2020-10-11] MEDS ORDERED: DEXTROSE 40% GEL 15 GM TUBE PO PRN ×2 (00:39)
[2020-10-11] MEDS ORDERED: GLUCAGON,HUMAN RECOMB 1 MG INJ IM PRN (00:39)
[2020-10-11] MEDS ORDERED: DEXTROSE 50%-WATER 25 GM/50 ML DISP.SYRIN IV PRN ×2 (00:39)
[2020-10-11] MEDS ORDERED: ACETAMINOPHEN SOLN 325 MG/10.15 ML UDCUP PO PRN (00:41)
[2020-10-11] MEDS ORDERED: ACETAMINOPHEN 325 MG TABLET PO PRN (00:42)
[2020-10-11 01:23] LABS: ANION GAP 9 (5-19); BLOOD UREA NITROGEN 13 mg/dL (7-20); CALCIUM 8.7 mg/dL (8.4-10.2); CARBON DIOXIDE 24 mmol/L (22-30); CHLORIDE 103 mmol/L (98-107); GLUCOSE 258 mg/dL (75-110); POTASSIUM 3.8 mmol/L (3.6-5.0)
[2020-10-11 06:20] LABS: HEMATOCRIT 32.8 % (37.9-51.0); MEAN CORPUSCULAR HEMOGLOBIN 31.5 pg (27.0-33.4); PLATELET COUNT 203 10^3/uL (150-450); RED BLOOD COUNT 3.74 10^6/uL (4.35-5.55); RED CELL DISTRIBUTION WIDTH 13.4 % (11.5-14.0); WHITE BLOOD COUNT 5.9 10^3/uL (4.0-10.5)
[2020-10-11 06:21] LABS: HEMOGLOBIN 11.8 g/dL (13.5-17.0); MEAN CORPUSCULAR VOLUME 88 fl (80-97)
[2020-10-11 06:36] LABS: ANION GAP 9 (5-19); BLOOD UREA NITROGEN 13 mg/dL (7-20); CARBON DIOXIDE 24 mmol/L (22-30); CHLORIDE 102 mmol/L (98-107); GLUCOSE 242 mg/dL (75-110); POTASSIUM 4.1 mmol/L (3.6-5.0)
[2020-10-11] MEDS: INSULIN LISPRO 100 UNIT/ML 3 ML VIAL SUBCUT SCH ×2 (08:44→12:54)
--- NOTE | 2020-10-11 09:06 | EKG REPORT ---
SEVERITY:- NORMAL ECG - SINUS RHYTHM : Confirmed by: Gil Weinberg MD 11-Oct-2020 09:05:44
[2020-10-11] MEDS: FAMOTIDINE INJ/PF 20 MG/2 ML SDV IV SCH (09:57)
[2020-10-11] MEDS ORDERED: ENOXAPARIN SODIUM INJ 40 MG/0.4 ML DISP.SYRIN SUBCUT SCH (10:00)
[2020-10-11] MEDS ORDERED: DOCUSATE SODIUM 100 MG CAPSULE PO SCH (10:00)
[2020-10-11 14:39] VITALS: BP 106/59
--- NOTE | 2020-10-11 17:05 | PDOC DISCHARGE SUMMARY ---
Impression - Admit/DC Date/PCP Admission Date/Primary Care Provider: 10/10/20 17:39 ISABEL JOHNSON NP Discharge Date: 10/11/20 - Discharge Diagnosis (1) Diabetic ketoacidosis Is this a current diagnosis for this admission?: Yes (2) Type 1 diabetes mellitus Is this a current diagnosis for this admission?: Yes (3) Hyperkalemia Is this a current diagnosis for this admission?: Yes (4) Hyperlipidemia Is this a current diagnosis for this admission?: Yes (5) Hyperglycemia Is this a current diagnosis for this admission?: Yes - Additional Information Resuscitation Status: Full Code Discharge Diet: Diabetic Discharge Activity: Activity As Tolerated, Balance Activity w/Rest Referrals: ISABEL JOHNSON NP [Primary Care Provider] - 10/19/20 8:40 am () Prescriptions: Pen Needle, Diabetic [Insulin Pen Needle] 1 each [facility] #120 dis.needle Home Medications: Insulin Glargine,Hum.rec.anlog [Lantus Insulin 100 Unit/mL Insulin Pen] 35 unit SUBCUT DAILY 10/02/20 Insulin Lispro [Humalog Kwikpen U-100] 0 unit SQ .SLIDING SCALE 10/02/20 Ondansetron [Zofran Odt 4 mg Tablet] 4 mg PO Q4HP PRN 10/10/20 Pen Needle, Diabetic [Insulin Pen Needle] 1 each [facility] #120 dis.needle 10/11/20 History of Present Illiness History of Present Illness: CHRIS LUQUE is a 25 year old male with a past medical history significant for insulin-dependent diabetes mellitus, medication noncompliance, recent admission for DKA and pancreatitis, hyperlipidemia, and hypertension who presented to the emergency department today with a complaint of uncontrolled blood sugars. Patient reports that overall his blood sugars have been well controlled the last several days with a fasting blood glucose average of "120." He does admit to having missed a few mealtime sliding scale doses over the last week but otherwise is adamant that he has been compliant with his insulin regiment. He states that this morning his blood sugar was normal but throughout the day he rapidly had increasing glucose despite attempts to correct. He does admit to drinking 1 beer last night. On presentation to the emergency department, he was found to have sodium 124.1, potassium 7.1, anion gap 23 with bicarb 17, and a glucose 929. Urinalysis and acute abdominal series imaging was negative for pertinent findings. CBC was unremarkable. Toxicology negative. He was provided IV fluid boluses, calcium gluconate, and insulin for correction of his potassium. He was then started on an insulin drip. Follow-up chemistry is much improved with sodium 133.5, anion gap 19, bicarb 20, and a glucose of 516. He is referred to the hospitalist service for further evaluation and management of the above stay complaints findings. Hospital Course Hospital Course: (1) Diabetic ketoacidosis Resolved. The patient was admitted to [facility] and treated with standard protocol of generous IV fluids, insulin drip, n.p.o. status, and serial chemistries. Once his anion gap had closed and bicarb corrected he was started on subcutaneous insulin and placed on clear liquid diet and advance as tolerated. He tolerated 100% of his meals without nausea or vomiting with continued adequate glucose control. Long discussion had about the patient's repeat admission for DKA and the importance of timely glucose monitoring and insulin administration. Of note, he has a glucose of 316 (10/11/2020; 1225) is post prandial as the moy ent ate his lunch prior to Accu-Chek being obtained. He was again reminded of the importance of checking his blood sugar prior to his meals so that appropriate sliding scale dosing could be made. (2) Type 1 diabetes mellitus Hemoglobin A1c greater than 14% Discharged last week after admission for pancreatitis and DKA. Patient admits to insulin noncompliance. Recommend close outpatient PCP and endocrinology follow-up. Patient is educated on the importance of dietary and medication compliance. (3) Hyperkalemia Resolved. Secondary to #1. Corrected with IV fluids, calcium gluconate, and insulin. (4) Hyperlipidemia Continue consistent carb/cardiac diet. Resume atorvastatin. Outpatient PCP follow-up. (5) Hyperglycemia Secondary to #1 and 2. Evaluation and management as above. Physical Exam Vital Signs: Temp Pulse Resp BP Pulse Ox 98.0 F 79 18 106/59 L 99 10/11/20 14:36 10/11/20 14:36 10/11/20 14:36 10/11/20 14:36 10/11/20 14:36 Intake & Output 10/10/20 10/11/20 10/12/20 06:59 06:59 06:59 Intake Total 3260 Balance 3260 Weight 68.5 kg 68.5 kg General appearance: PRESENT: no acute distress, cooperative, thin, well- developed, well-nourished Head exam: PRESENT: atraumatic, normocephalic Eye exam: PRESENT: conjunctiva pink, EOMI, PERRLA. ABSENT: scleral icterus Mouth exam: PRESENT: moist, tongue midline Respiratory exam: PRESENT: clear to auscultation saravanan, symmetrical, unlabored, other - Room air. ABSENT: rales, rhonchi, wheezes Cardiovascular exam: PRESENT: RRR, +S1, +S2. ABSENT: diastolic murmur, rubs, systolic murmur Pulses: PRESENT: normal dorsalis pedis pul Vascular exam: PRESENT: normal capillary refill GI/Abdominal exam: PRESENT: normal bowel sounds, soft. ABSENT: distended, guarding, mass, organolmegaly, rebound, tenderness Rectal exam: PRESENT: deferred Extremities exam: PRESENT: full ROM. ABSENT: calf tenderness, clubbing, pedal edema Neurological exam: PRESENT: alert, awake, oriented to person, oriented to place, oriented to time, oriented to situation, CN II-XII grossly intact. ABSENT: motor sensory deficit Psychiatric exam: PRESENT: appropriate affect, normal mood. ABSENT: homicidal ideation, suicidal ideation Skin exam: PRESENT: dry, intact, warm. ABSENT: cyanosis, rash Results Laboratory Results: WBC 5.9 10^3/uL (4.0-10.5) 10/11/20 05:49 RBC 3.74 10^6/uL (4.35-5.55) L 10/11/20 05:49 Hgb 11.8 g/dL (13.5-17.0) L D 10/11/20 05:49 Hct 32.8 % (37.9-51.0) L 10/11/20 05:49 MCV 88 fl (80-97) D 10/11/20 05:49 MCH 31.5 pg (27.0-33.4) 10/11/20 05:49 MCHC 36.0 g/dL (32.0-36.0) 10/11/20 05:49 RDW 13.4 % (11.5-14.0) 10/11/20 05:49 Plt Count 203 10^3/uL (150-450) 10/11/20 05:49 Lymph % (Auto) 12.7 % (13-45) L 10/10/20 14:30 [place] % (Auto) 4.8 % (3-13) 10/10/20 14:30 Eos % (Auto) 0.2 % (0-6) 10/10/20 14:30 Baso % (Auto) 0.3 % (0-2) 10/10/20 14:30 Absolute Neuts (auto) 5.2 10^3/uL (1.7-8.2) 10/10/20 14:30 Absolute Lymphs (auto) 0.8 10^3/uL (0.5-4.7) 10/10/20 14:30 Absolute Monos (auto) 0.3 10^3/uL (0.1-1.4) 10/10/20 14:30 Absolute Eos (auto) 0.0 10^3/uL (0.0-0.6) 10/10/20 14:30 Absolute Basos (auto) 0.0 10^3/uL (0.0-0.2) 10/10/20 14:30 Seg Neutrophils % 82.0 % (42-78) H 10/10/20 14:30 VBG pH 7.23 (7.30-7.42) L 10/10/20 17:09 VBG pCO2 35.4 mmHg (35-63) 10/10/20 17:09 VBG HCO3 14.6 mmol/L (20-32) L 10/10/20 17:09 VBG Base Excess -12.0 mmol/L 10/10/20 17:09 Sodium 134.9 mmol/L (137-145) L 10/11/20 05:49 Potassium 4.1 mmol/L (3.6-5.0) 10/11/20 05:49 Chloride 102 mmol/L (98-107) 10/11/20 05:49 Carbon Dioxide 24 mmol/L (22-30) 10/11/20 05:49 Anion Gap 9 (5-19) 10/11/20 05:49 BUN 13 mg/dL (7-20) 10/11/20 05:49 Creatinine 0.63 mg/dL (0.52-1.25) 10/11/20 05:49 Est GFR ( Amer) > 60 (>60) 10/11/20 05:49 Est GFR (MDRD) Non-Af > 60 (>60) 10/11/20 05:49 Glucose 242 mg/dL (75-110) H 10/11/20 05:49 POC Glucose 316 mg/dL (70-110) H 10/11/20 12: Calcium 9.0 mg/dL (8.4-10.2) 10/11/20 05:49 Total Bilirubin 1.5 mg/dL (0.2-1.3) H 10/10/20 14:30 Direct Bilirubin 0.3 mg/dL (0.0-0.4) 10/10/20 14:30 Neonat Total Bilirubin Not Reportable 10/10/20 14:30 Neonat Direct Bilirubin Not Reportable 10/10/20 14:30 Neonat Indirect Bili Not Reportable 10/10/20 14:30 AST 21 U/L (17-59) 10/10/20 14:30 ALT 14 U/L (<50) 10/10/20 14:30 Alkaline Phosphatase 109 U/L (38-126) 10/10/20 14:30 Total Protein 7.7 g/dL (6.3-8.2) 10/10/20 14:30 Albumin 5.1 g/dL (3.5-5.0) H 10/10/20 14:30 Amylase 81 U/L (30-110) 10/10/20 14:30 Lipase 102.1 U/L (23-300) 10/10/20 14:30 Urine Color COLORLESS 10/10/20 14:30 Urine Appearance CLEAR 10/10/20 14:30 Urine pH 6.0 (5.0-9.0) 10/10/20 14:30 Ur Specific [place] 1.026 10/10/20 14:30 Urine Protein NEGATIVE mg/dL (NEGATIVE) 10/10/20 14:30 Urine Glucose (UA) >=500 mg/dL (NEGATIVE) H 10/10/20 14:30 Urine Ketones 20 mg/dL (NEGATIVE) H 10/10/20 14:30 Urine Blood NEGATIVE (NEGATIVE) 10/10/20 14:30 Urine Nitrite NEGATIVE (NEGATIVE) 10/10/20 14:30 Urine Bilirubin NEGATIVE (NEGATIVE) 10/10/20 14:30 Urine Urobilinogen NEGATIVE mg/dL (<2.0) 10/10/20 14:30 Ur Leukocyte Esterase NEGATIVE (NEGATIVE) 10/10/20 14:30 Urine WBC (Auto) 1 /HPF 10/10/20 14:30 Urine Ascorbic Acid NEGATIVE (NEGATIVE) 10/10/20 14:30 Urine Opiates Screen NEGATIVE 10/10/20 14:30 Urine Methadone Screen NEGATIVE 10/10/20 14:30 Ur Barbiturates Screen NEGATIVE 10/10/20 14:30 Ur Phencyclidine Scrn NEGATIVE 10/10/20 14:30 Ur Amphetamines Screen NEGATIVE 10/10/20 14:30 U Benzodiazepines Scrn NEGATIVE 10/10/20 14:30 Urine Cocaine Screen NEGATIVE 10/10/20 14:30 U Marijuana (THC) Screen NEGATIVE 10/10/20 14:30 Impressions: Acute Abdomen Series 10/10/20 16:05 IMPRESSION: No evidence of acute intrathoracic process. No evidence of acute intra-abdominal/pelvic process. Plan Plan of Treatment: Patient is discharged home in stable condition. He is advised follow-up with his primary care provider within 1 week. He is instructed to contact his tower switch operator inform them of his recent multiple admissions for DKA; follow-up at the earliest available appointment. He is educated on the importance of continuing a consistent carb diet and improving his insulin compliance the patient has again admitted to poor mealtime insulin compliance. He is instructed to drink plenty of water. He is encouraged to return to the emergency department, as needed, for concerning symptoms. Time Spent: Greater than 30 Minutes Stroke Is this a Stroke Patient?: No Acute Heart Failure Is this a Heart Failure Patient?: No
[2020-10-11] MEDS ORDERED: INSULIN GLARGINE,HUM.REC.ANLOG 1,000 UNIT/10 ML VIAL SUBCUT SCH (22:00)
== END 2020-10-11 14:50 | disposition home or self-care (01) ==
LOC: ER 12:35 → EH 17:39 → INTOOBSV 17:39 → 3S 20:00
PROVIDERS: ADMIT Hospitalist; ATTEND Registered Nurse
DX: E10.10 Type 1 diabetes mellitus with ketoacidosis without coma (principal); E87.5 Hyperkalemia; E78.5 Hyperlipidemia, unspecified; R00.0 Tachycardia, unspecified; Z87.19 Personal history of other diseases of the digestive system; Z90.49 Acquired absence of other specified parts of digestive tract
CPT/HCPCS: 93005; 99285; 96361; 96375; 96365; 36415 ×2; 82962 ×2; 82150; 83690; 85025; 85027; 80048; 80053; 81001; 80307; 82803; 74022; 93010; G0378 ×3; J0610; J1815 ×3; J1650; J3490; J7042; J7030; J7120; S0028 ×2